=== PATIENT | male | born 1965 | race Caucasian/White ===

== ENCOUNTER 2021-09-17 15:05 | Inpatient (IN) | payer MEDICAID ==
[~2021-09-17] VITALS: Ht 165.1 cm; Wt 39.0 kg
[2021-09-17 15:44] LABS: HEMATOCRIT 30.2 % (36.7-47.1); MEAN CORPUSCULAR HEMOGLOBIN 34.1 uug (23.8-33.4); MEAN CORPUSCULAR VOLUME 99.9 fL (73.0-96.2); PLATELET COUNT (AUTO) 223 K/uL (152-348)
[2021-09-17 16:10] LABS: CREATININE 0.8 mg/dL (0.6-1.3)
[2021-09-17 16:23] LABS: BILIRUBIN,TOTAL 0.4 mg/dL (0.2-1.0); TOTAL PROTEIN, SERUM 5.7 g/dL (6.4-8.2)
[2021-09-17 17:21] LABS: *BILIRUBIN,URIN NEGATIVE (NEGATIVE); *BLOOD, URINE 2+ (NEGATIVE); *CLARITY,URINE CLEAR (CLEAR); *COLOR,URINE YELLOW (YELLOW); *KETONES,URINE NEGATIVE (NEGATIVE); *UROBILINOGEN,URINE 0.2 E.U./dl (NORMAL); LEUKOCYTE ESTERASE ,URINE TRACE (NEGATIVE); NITRITE, URINE NEGATIVE (NEGATIVE); UGLUCOSE NEGATIVE (NEGATIVE)
[2021-09-17] MEDS ORDERED: ASPI81TA31 PO (17:21)
[2021-09-17] MEDS ORDERED: LOPE2CAP PO (17:21)
[2021-09-17] MEDS ORDERED: ASCO500P18 PO (17:21)
[2021-09-17] MEDS ORDERED: FOLI1TAB94 PO (17:21)
[2021-09-17] MEDS ORDERED: SULF1TAB47 PO (17:21)
[2021-09-17] MEDS ORDERED: MULT-1276 PO (17:21)
[2021-09-17] MEDS ORDERED: PANT40TA49 PO (17:21)
[2021-09-17] MEDS ORDERED: MAGN400T8 PO (17:21)
[2021-09-17] MEDS ORDERED: THIA100T70 PO (17:21)
--- NOTE | 2021-09-17 18:40 | NUR ---
called package center supervisor for piccline.
--- NOTE | 2021-09-17 18:43 | NUR ---
PT REMAINED JINA/COMFORTABLE, ON RA THE WHOLE ER STAY. PT REQUESTED DINNER. PROVIDED.PT TRANSFERED TO FLOOR IN STABLE CONDITION.
[2021-09-17 18:54] LABS: BACTERIA,URINE FEW /HPF (NONE SEEN); SQUAMOUS EPITHELIAL CELL,UR FEW /HPF (NONE SEEN); WBC,URINE 0-3 /HPF (0-3)
[2021-09-17 20:00] VITALS: BP 91/63
[2021-09-17] MEDS ORDERED: ONDANSETRON 4 MG/2 ML VIAL IV PRN (22:45)
[2021-09-17] MEDS ORDERED: REMEDY ESSENTIAL ZINC PASTE 113 GM TP PRN (22:45)
[2021-09-17] MEDS ORDERED: CEFTRIAXONE 1 G in IV DEXTROSE 5% 50 ML IV SCH (22:45)
[2021-09-17] MEDS ORDERED: ZOLPIDEM 5 MG TABLET PO PRN (22:45)
[2021-09-17] MEDS: IV NS 1000 ML 1,000 ML IV PRN (23:06)
[2021-09-17] MEDS ORDERED: CEFTRIAXONE /D5W 50ML IVPB **ER PYXIS IV ONE (23:17)
--- NOTE | 2021-09-18 05:28 | NUR ---
Admitted to med surg. Pt somewhat confused at times but able to make needs known. IV site intact. Denies pain or SOB. Satting adequately on room air. Able to walk with FWW and with standby assist. Safety maintained, will endorse to day shift.
[2021-09-18] MEDS: PANTOPRAZOLE SODIUM 40 MG TABLET.DR PO SCH (06:07)
[2021-09-18 06:26] LABS: HEMATOCRIT 32.7 % (36.7-47.1); MEAN CORPUSCULAR HEMOGLOBIN 34.5 uug (23.8-33.4); MEAN CORPUSCULAR VOLUME 100.5 fL (73.0-96.2); PLATELET COUNT (AUTO) 130 K/uL (152-348)
[2021-09-18 06:54] LABS: CARBON DIOXIDE 25 mmol/L (21-32); CHLORIDE 98 mmol/L (98-107); CHOLESTEROL 69 mg/dL (<200); HDL CHOLESTEROL 46 mg/dL (40-60); MAGNESIUM 1.7 mg/dL (1.8-2.4); PHOSPHOROUS 3.7 mg/dL (2.5-4.9); TRIGLYCERIDES 19 MG/DL (30-150); UREA NITROGEN, BLOOD 25 mg/dL (7-18)
[2021-09-18] MEDS: THIAMINE HCL 100 MG TABLET PO SCH (08:15)
[2021-09-18] MEDS: ASPIRIN 81 MG TAB.CHEW PO SCH (08:15)
[2021-09-18] MEDS: MAGNESIUM OXIDE 400 MG TABLET PO SCH ×2 (08:15→16:14)
[2021-09-18] MEDS: ASCORBIC ACID 500 MG TABLET PO SCH (08:15)
[2021-09-18] MEDS: MULTIVITAMINS,THERAPEUTIC TABLET PO SCH (08:15)
[2021-09-18] MEDS: FOLIC ACID 1 MG TABLET PO SCH (08:16)
[2021-09-18 08:20] LABS: CREATININE 0.6 mg/dL (0.6-1.3)
[2021-09-18 08:30] LABS: GLUCOSE 45 mg/dL (74-106)
[2021-09-18] MEDS ORDERED: DEXTROSE 50% 50 ML DISP.SYRIN IV ONE (09:15)
--- NOTE | 2021-09-18 09:21 | NUR ---
pt blood sugar is 35 md made aware and new orders received noted and carried out.
[2021-09-18] MEDS ORDERED: MAGNESIUM OXIDE 400 MG TABLET PO ONE (10:00)
[2021-09-18] MEDS: IV NS 1000 ML 1,000 ML IV PRN ×2 (10:22→21:37)
[2021-09-18] MEDS ORDERED: AZIT250T13 PO (12:06)
[2021-09-18] MEDS: SULFAMETH/TRIMETH 800/160 MG TABLET PO SCH (12:29)
[2021-09-18] MEDS ORDERED: ASCO500T10 PO (12:56)
[2021-09-18 13:16] VITALS: BP 90/62
[2021-09-18 13:25] LABS: BILIRUBIN,DIRECT 0.1 mg/dL (0.0-0.2); BILIRUBIN,TOTAL 0.3 mg/dL (0.2-1.0); TOTAL PROTEIN, SERUM 5.4 g/dL (6.4-8.2)
--- NOTE | 2021-09-18 16:14 | NUR ---
Clinical Social Work Note: SW visited pt to conduct a consult. Pt was asleep and remained asleep. SW will revisit pt again to provide resources, assess alert and orientation, additional needs and questions. SW was unable to provide pt with a homeless waiver form and attached homeless shelters such as: [facility] homeless directory which provides information on locations for hot meals, sack lunches, food pantries, and showers. SW provided a list of mental health clinics: [facility] [address] [place] [address], ; [facility] [address] [place] [address], ; [facility] [address] [place] [address], ; a list of medical clinics: [facility] [address], [place]. [place], ; [facility] [address], [place] [address]; [facility] [address] [place] [address], ; and a list of substance abuse programs: [facility] Substance Abuse Self-helpline ; [facility] ; [facility] ; [facility] ; [facility] ; [facility] [phone]; [facility] [phone]. Patient signed the homeless waiver form and a copy was placed in the chart.
[2021-09-18 16:20] VITALS: BP 92/72
--- NOTE | 2021-09-18 20:35 | NUR ---
Received patient lying in bed. AAOX4, Icelandic speaking. Appears to be poorly nourished. IV access' patent and intact. RODO midline infusing fluids well. Safety precautions initiated. Will continue to monitor.
[2021-09-18 21:58] VITALS: BP 111/74
--- NOTE | 2021-09-19 | NUR ---
Received call from Augusta Liriano from [facility], requesting for an update on patient's status and if he's ready for discharge tomorrow.
[2021-09-19 00:55] VITALS: BP 87/55
[2021-09-19 04:00] VITALS: BP 91/69
[2021-09-19] MEDS: LOPERAMIDE HCL 2 MG CAPSULE PO PRN ×3 (06:00→19:47)
[2021-09-19] MEDS: PANTOPRAZOLE SODIUM 40 MG TABLET.DR PO SCH (06:00)
--- NOTE | 2021-09-19 06:42 | NUR ---
Patient slept through the night, with frequent episodes of diarrhea. Advised pt to collect stool. MRSA swab done and sent to lab. IVF infusing well. IV access' patent and intact. Patient is scheduled to have a US Abdomen Complete done, however, patient became hungry and ate snacks. Reinforced importance of imaging done. Safety precautions maintained. Will endorse to day shift.
[2021-09-19 07:27] LABS: HEMATOCRIT 28.5 % (36.7-47.1); MEAN CORPUSCULAR VOLUME 101.9 fL (73.0-96.2); PLATELET COUNT (AUTO) 161 K/uL (152-348)
[2021-09-19 08:06] LABS: HEPATITIS B SURFACE AG Negative (Negative)
[2021-09-19 08:10] LABS: CREATININE 0.7 mg/dL (0.6-1.3); MAGNESIUM 1.6 mg/dL (1.8-2.4); PHOSPHOROUS 2.9 mg/dL (2.5-4.9); URIC ACID 5.2 mg/dL (3.5-7.2)
[2021-09-19 08:25] LABS: POTASSIUM 2.6 mmol/L (3.5-5.1)
[2021-09-19 08:34] LABS: THYROID STIMULATING HORMONE 1.176 mIU/mL (0.358-3.740)
[2021-09-19] MEDS: MAGNESIUM OXIDE 400 MG TABLET PO SCH ×3 (09:00→16:43)
[2021-09-19] MEDS ORDERED: ASCORBIC ACID 500 MG TABLET PO SCH (09:00)
[2021-09-19] MEDS: ASPIRIN 81 MG TAB.CHEW PO SCH (09:56)
[2021-09-19] MEDS: AZITHROMYCIN 250 MG TABLET PO SCH (09:57)
[2021-09-19] MEDS: FOLIC ACID 1 MG TABLET PO SCH (09:57)
[2021-09-19] MEDS: THIAMINE HCL 100 MG TABLET PO SCH (09:57)
[2021-09-19] MEDS: SULFAMETH/TRIMETH 800/160 MG TABLET PO SCH (09:57)
[2021-09-19] MEDS: ASCORBIC ACID 500 MG TABLET PO SCH (09:58)
[2021-09-19] MEDS: MULTIVITAMINS,THERAPEUTIC TABLET PO SCH (09:58)
--- NOTE | 2021-09-19 10:23 | NUR ---
Pt has critical lab value reported by lab. Potassium 2.6, notified. MRSA swab sent in for processing. Per 09/18 nurse, stool sample sent in yesterday during day shift. No suigns of acute distress. Pt is a/o x 3 Occitan speaking. Pt had abdominal ultrasound done, pending results. Refused mag-ox due to diarrhea. Call light within reach. Will continue to monitor pt.
[2021-09-19] MEDS ORDERED: POTASSIUM CHLORIDE 20 MEQ TAB.PRT.SR PO ONE ×3 (11:45→15:00)
[2021-09-19] MEDS ORDERED: MAGNESIUM OXIDE 400 MG TABLET PO ONE (11:45)
[2021-09-19 11:51] VITALS: BP 96/51
[2021-09-19 16:00] VITALS: BP 86/61
[2021-09-19] MEDS: ENSURE ENLIVE (VAN) 240 ML LIQUID PO SCH (16:43)
[2021-09-19] MEDS: IV NS 1000 ML 1,000 ML IV PRN (19:40)
[2021-09-19 20:55] VITALS: BP 114/74
[2021-09-20 04:00] VITALS: BP 113/71
[2021-09-20] MEDS: IV NS 1000 ML 1,000 ML IV PRN (05:29)
[2021-09-20] MEDS: PANTOPRAZOLE SODIUM 40 MG TABLET.DR PO SCH (06:36)
[2021-09-20 07:05] LABS: HEMATOCRIT 28.1 % (36.7-47.1); MEAN CORPUSCULAR HEMOGLOBIN 34.6 uug (23.8-33.4); MEAN CORPUSCULAR VOLUME 101.8 fL (73.0-96.2); PLATELET COUNT (AUTO) 151 K/uL (152-348)
[2021-09-20 07:15] LABS: CREATININE 0.8 mg/dL (0.6-1.3); MAGNESIUM 1.6 mg/dL (1.8-2.4); POTASSIUM 3.4 mmol/L (3.5-5.1)
[2021-09-20] MEDS: FOLIC ACID 1 MG TABLET PO SCH (08:44)
[2021-09-20] MEDS: THIAMINE HCL 100 MG TABLET PO SCH (08:44)
[2021-09-20] MEDS: MAGNESIUM OXIDE 400 MG TABLET PO SCH ×2 (08:45→17:11)
[2021-09-20] MEDS: SULFAMETH/TRIMETH 800/160 MG TABLET PO SCH (08:45)
[2021-09-20] MEDS ORDERED: DEXTROSE 50% 50 ML DISP.SYRIN IV PRN (08:45)
[2021-09-20] MEDS: ENSURE ENLIVE (VAN) 240 ML LIQUID PO SCH ×3 (08:45→17:11)
[2021-09-20] MEDS: MULTIVITAMINS,THERAPEUTIC TABLET PO SCH (08:45)
--- NOTE | 2021-09-20 08:51 | NUR ---
Pt has criticakl lab value reported by lab of glucose 34. Pt is alert and oriented having breakfast. Rechecked accucheck, level was now 25. has been notified. Provided orange juice, obtained orders for and administered D50. Will closely monitor pt.
--- NOTE | 2021-09-20 09:20 | NUR ---
Rechecked accucheck and blood glucose increased to 91. Pt continue to be alert and oriented. No signs of hypoglycemia noted. Pt ate full breakfast. Will continue to monitor.
[2021-09-20] MEDS: ASPIRIN 81 MG TAB.CHEW PO SCH (09:45)
[2021-09-20] MEDS: ASCORBIC ACID 500 MG TABLET PO SCH (09:45)
[2021-09-20 10:33] LABS: AMYLASE 101 U/L (25-115); LIPASE 141 U/L (73-393)
[2021-09-20] MEDS ORDERED: POTASSIUM PHOSPHATE MM 7.5 MMOL in IV NORMAL SALINE 97.5 ML IV ONE (11:00)
[2021-09-20] MEDS: MAGNESIUM SULFATE/D5W 100 ML IV SCH ×2 (11:48→13:01)
[2021-09-20] MEDS: IV D5/ 0.9% NACL 1,000 ML IV PRN ×2 (11:48→23:37)
[2021-09-20 12:00] VITALS: BP 95/59
--- NOTE | 2021-09-20 12:00 | NUR ---
Order for Q6 accucheck has been placed. Blood sugar for 1200 is 111. Pt is also now runnin D5 NS at 100cc. Comfort measures provided, call light within reach. Will continue to monitor.
[2021-09-20] MEDS: BLOOD SUGAR DIAGNOSTIC 1 EACH STRIP VI SCH ×2 (12:44→17:43)
[2021-09-20 16:00] VITALS: BP 96/61
[2021-09-20] MEDS: LOPERAMIDE HCL 2 MG CAPSULE PO PRN (17:11)
--- NOTE | 2021-09-20 18:30 | NUR ---
Accucheck value is increased to 111 for 1800 monitoring. Entered in EMAR but does not display in labs/chemistry tab. Pharmacy and lab notified by Charge nurse. Pt has been stable since administration of d50 and fluids in the am. Removed left forearm IV and right hand IV due to leakage and pt complaint of discomfort. Left upper arm midline intact, patent, and running D5NS at 100cc. Pt continues to have diarrhea x 3 today, administered immodium. Comfort measures provided. Call light within reach. Will endorse to night guard.
[2021-09-20 20:00] VITALS: BP 61/40
[2021-09-21] MEDS: BLOOD SUGAR DIAGNOSTIC 1 EACH STRIP VI SCH ×4 (00:04→17:48)
[2021-09-21 04:00] VITALS: BP 98/65
[2021-09-21] MEDS: LOPERAMIDE HCL 2 MG CAPSULE PO PRN ×3 (05:42→17:19)
[2021-09-21] MEDS: PANTOPRAZOLE SODIUM 40 MG TABLET.DR PO SCH (06:01)
[2021-09-21 07:04] LABS: HEMATOCRIT 31.1 % (36.7-47.1); MEAN CORPUSCULAR HEMOGLOBIN 34.5 uug (23.8-33.4); MEAN CORPUSCULAR VOLUME 102.4 fL (73.0-96.2); PLATELET COUNT (AUTO) 141 K/uL (152-348)
[2021-09-21 07:35] LABS: BILIRUBIN,DIRECT 0.1 mg/dL (0.0-0.2); BILIRUBIN,TOTAL 0.3 mg/dL (0.2-1.0); CREATININE 0.8 mg/dL (0.6-1.3); MAGNESIUM 1.9 mg/dL (1.8-2.4); PHOSPHOROUS 1.6 mg/dL (2.5-4.9); POTASSIUM 3.1 mmol/L (3.5-5.1); TOTAL PROTEIN, SERUM 5.6 g/dL (6.4-8.2)
--- NOTE | 2021-09-21 08:00 | NUR ---
PT ambulatory with good balance while using FWW independently. Pt Sitting up in chair. Pt denies any c/o pain. PT had minimal coughing noted. o2 sat 97% on r/a. Call light is within reach.
[2021-09-21] MEDS ORDERED: POTASSIUM CHLORIDE 20 MEQ TAB.PRT.SR PO ONE (08:15)
[2021-09-21] MEDS ORDERED: POTASSIUM PHOSPHATE MM 15 MMOL in IV NORMAL SALINE 250 ML IV ONE (09:00)
[2021-09-21] MEDS: MAGNESIUM OXIDE 400 MG TABLET PO SCH ×2 (09:51→17:19)
[2021-09-21] MEDS: FOLIC ACID 1 MG TABLET PO SCH (09:51)
[2021-09-21] MEDS: SULFAMETH/TRIMETH 800/160 MG TABLET PO SCH (09:51)
[2021-09-21] MEDS: ASPIRIN 81 MG TAB.CHEW PO SCH (09:51)
[2021-09-21] MEDS: THIAMINE HCL 100 MG TABLET PO SCH (09:51)
[2021-09-21] MEDS: ASCORBIC ACID 500 MG TABLET PO SCH (09:52)
[2021-09-21] MEDS: MULTIVITAMINS,THERAPEUTIC TABLET PO SCH (09:52)
[2021-09-21] MEDS: ENSURE WITH FIBER 237 ML LIQUID (CHOCOLATE) PO SCH ×3 (09:52→17:48)
[2021-09-21] MEDS: ENSURE ENLIVE (VAN) 240 ML LIQUID PO SCH ×3 (09:52→17:48)
[2021-09-21 12:00] VITALS: BP 110/58
[2021-09-21 16:00] VITALS: BP 88/51
[2021-09-21] MEDS: IV D5/ 0.9% NACL 1,000 ML IV PRN (18:44)
--- NOTE | 2021-09-21 18:55 | NUR ---
Pt has poor appetite throughout shift. PT had x 3 diarrhea today gave Imodium. Pt denies any c/o pain.
[2021-09-21 20:00] VITALS: BP 88/60
[2021-09-21 21:05] LABS: *BASOS 0 % (Not Estab.); *EOS 1 % (Not Estab.); *EOS ABSOLUTE 0.1 x10E3/uL (0.0-0.4); *HCT 29.8 % (37.5-51.0); *HGB 10.7 g/dL (13.0-17.7); *IMMATURE GRANULOCYTES 0.1 x10E3/uL (0.0-0.1); *IMMATURE GRANULOCYTES 2 % (Not Estab.); *LYMPHOCYTES 17 % (Not Estab.); *LYMPHOCYTES ABSOLUTE 0.8 x10E3/uL (0.7-3.1); *MCH 34.1 pg (26.6-33.0); *MCHC 35.9 g/dL (31.5-35.7); *MCV 95 fL (79-97); *MONOCYTES 8 % (Not Estab.); *MONOCYTES ABSOLUTE 0.4 x10E3/uL (0.1-0.9); *NEUTROPHILS 72 % (Not Estab.); *NEUTROPHILS ABSOLUTE 3.4 x10E3/uL (1.4-7.0); *PLT 157 x10E3/uL (150-450); *RBC 3.14 x10E6/uL (4.14-5.80); *RDW 11.8 % (11.6-15.4); *WBC 4.7 x10E3/uL (3.4-10.8)
[2021-09-22] MEDS: BLOOD SUGAR DIAGNOSTIC 1 EACH STRIP VI SCH ×5 (00:29→23:49)
[2021-09-22 04:00] VITALS: BP 86/45
[2021-09-22] MEDS: IV D5/ 0.9% NACL 1,000 ML IV PRN ×2 (05:27→22:05)
[2021-09-22] MEDS: PANTOPRAZOLE SODIUM 40 MG TABLET.DR PO SCH (06:02)
--- NOTE | 2021-09-22 08:07 | NUR ---
Patient slept through out the night. On room air saturating at 99%. No signs of acute distress noted. Able to walk to bathroom. IV in LAC running D5 NS at 100mls. Droplet precautions initiated. 0600 Accucheck 80. Compliant with medication and care. Urinal and belongings placed within reach. Call lights with reach. Safety measures maintained.
[2021-09-22] MEDS: SULFAMETH/TRIMETH 800/160 MG TABLET PO SCH (09:53)
[2021-09-22] MEDS: THIAMINE HCL 100 MG TABLET PO SCH (09:53)
[2021-09-22] MEDS: AZITHROMYCIN 250 MG TABLET PO SCH (09:53)
[2021-09-22] MEDS: ASPIRIN 81 MG TAB.CHEW PO SCH (09:53)
[2021-09-22] MEDS: MAGNESIUM OXIDE 400 MG TABLET PO SCH ×2 (09:53→17:17)
[2021-09-22] MEDS: FOLIC ACID 1 MG TABLET PO SCH (09:53)
[2021-09-22] MEDS: MULTIVITAMINS,THERAPEUTIC TABLET PO SCH (09:53)
[2021-09-22] MEDS: ASCORBIC ACID 500 MG TABLET PO SCH (09:53)
[2021-09-22] MEDS: ENSURE ENLIVE (VAN) 240 ML LIQUID PO SCH ×3 (09:54→17:17)
[2021-09-22] MEDS: ENSURE WITH FIBER 237 ML LIQUID (CHOCOLATE) PO SCH ×3 (09:54→17:17)
[2021-09-22 10:06] LABS: *HELPER T-LYMPH MARKR(CD4)ABSO 34 /uL (359-1519); *HELPER T-LYNPH MARKER CD4)% 4.3 % (30.8-58.5)
[2021-09-22 12:00] VITALS: BP 96/56
--- NOTE | 2021-09-22 14:45 | NUR ---
Clinical Social Work Note: SW visited pt to conduct a consult. Pt was alert and oriented x4. Pt stated he does not have family and he will return to the hotel he came from. Pt stated he will go there with public transportation. SW provided pt with a homeless waiver form and attached homeless shelters such as: [facility] homeless directory which provides information on locations for hot meals, sack lunches, food pantries, and showers. SW provided a list of mental health clinics: [facility] [address] [place] [address], ; [facility] [address] [place] [address], ; [facility] [address] [place] [address], ; a list of medical clinics: [facility] [address], [place]. [place], ; [facility] [address] [facility] [place] [address]; [facility] [address] [place] [address], ; and a list of substance abuse programs: [facility] Substance Abuse Self-helpline ; [facility] ; [facility] ; [facility] ; [facility] ; [facility] [phone]; [facility] [phone]. Patient signed the homeless waiver form and a copy was placed in the chart.
[2021-09-22 16:00] VITALS: BP 87/56
--- NOTE | 2021-09-22 19:00 | NUR ---
No diarrhea noted this shift. CT abd/pelvis done awaiting report. PT has better appetite today witnessed pt ate 75% for lunch. IVF infusing as ordered. Pt's sbp @80 asymptomatic. Pt denies any dizziness. Call light is within reach.
[2021-09-22 20:00] VITALS: BP 92/52
--- NOTE | 2021-09-23 | NUR ---
Pt sleeping comfortably. On room air saturating at 100%. 0000 Accucheck done, BSG 79. No signs of acute distress. RODO midline, intact and patent running D5 NS at 100 mls. Urinal and call light placed within reach. Safety measures implemented. Droplet precautions.
[2021-09-23 04:00] VITALS: BP 94/64
[2021-09-23] MEDS: LOPERAMIDE HCL 2 MG CAPSULE PO PRN (05:59)
[2021-09-23] MEDS: BLOOD SUGAR DIAGNOSTIC 1 EACH STRIP VI SCH ×3 (05:59→17:51)
[2021-09-23] MEDS: PANTOPRAZOLE SODIUM 40 MG TABLET.DR PO SCH (06:04)
[2021-09-23 06:33] LABS: CARBON DIOXIDE 23 mmol/L (21-32); CHLORIDE 102 mmol/L (98-107); CREATININE 0.5 mg/dL (0.6-1.3); GLUCOSE 66 mg/dL (74-106); MAGNESIUM 1.8 mg/dL (1.8-2.4); PHOSPHOROUS 1.4 mg/dL (2.5-4.9); POTASSIUM 4.2 mmol/L (3.5-5.1); UREA NITROGEN, BLOOD 5 mg/dL (7-18)
[2021-09-23 08:01] LABS: HEMATOCRIT 25.1 % (36.7-47.1); MEAN CORPUSCULAR HEMOGLOBIN 34.6 uug (23.8-33.4); MEAN CORPUSCULAR VOLUME 101.3 fL (73.0-96.2); PLATELET COUNT (AUTO) 109 K/uL (152-348)
--- NOTE | 2021-09-23 08:15 | NUR ---
Slept comfortably throughout the night. On room air saturating at 100%. AO x 4. Pt had 2 diarrhea episodes am, immodium PO given. 0600 Accucheck done, BSG 69. Cheshire juice given. No signs of acute distress. Call lights within reach. Will endorse to am shift for continuity of care.
[2021-09-23] MEDS: SULFAMETH/TRIMETH 800/160 MG TABLET PO SCH (09:38)
[2021-09-23] MEDS: IV D5/ 0.9% NACL 1,000 ML IV PRN ×2 (09:38→17:41)
[2021-09-23] MEDS: ASPIRIN 81 MG TAB.CHEW PO SCH (09:38)
[2021-09-23] MEDS: MULTIVITAMINS,THERAPEUTIC TABLET PO SCH (09:38)
[2021-09-23] MEDS: THIAMINE HCL 100 MG TABLET PO SCH (09:38)
[2021-09-23] MEDS: MAGNESIUM OXIDE 400 MG TABLET PO SCH ×2 (09:39→16:46)
[2021-09-23] MEDS: FOLIC ACID 1 MG TABLET PO SCH (09:39)
[2021-09-23] MEDS: ASCORBIC ACID 500 MG TABLET PO SCH (09:39)
[2021-09-23] MEDS: ENSURE ENLIVE (VAN) 240 ML LIQUID PO SCH ×3 (09:49→16:47)
[2021-09-23] MEDS: ENSURE WITH FIBER 237 ML LIQUID (CHOCOLATE) PO SCH ×2 (09:49→13:57)
[2021-09-23 15:52] VITALS: BP 78/52
--- NOTE | 2021-09-23 15:59 | NUR ---
patient with bp 78/52 notified valorie maria with new order for NS 500ml bolus x1 noted and carried out.
[2021-09-23] MEDS ORDERED: IV NORMAL SALINE 500 ML BAG IV ONE (16:00)
[2021-09-23 17:00] VITALS: BP 87/57
[2021-09-23] MEDS ORDERED: SODIUM PHOSPHATE MM 15 MMOL in IV NORMAL SALINE 250 ML IV ONE (17:00)
[2021-09-23 20:00] VITALS: BP_SYST 77; BP_DIAS 49; BP_DIAS 79
--- NOTE | 2021-09-23 20:00 | NUR ---
Patient still noted with hypotension, Sodium phosphate infusing at this time. Patient is asymptomatic. Will continue to monitor.
[2021-09-24] VITALS: BP 85/46
[2021-09-24] MEDS: BLOOD SUGAR DIAGNOSTIC 1 EACH STRIP VI SCH ×4 (00:45→17:16)
--- NOTE | 2021-09-24 01:20 | NUR ---
Blood sugar is 55 at around 0045, 1/2 cup oj given, patient not able to tolerate full glass, BS is now 62. Encouraged one cup of orange juice and patient was able to tolerate it. Will reassess BS. Patient is asymptomatic.
--- NOTE | 2021-09-24 02:00 | NUR ---
Blood sugar is now 79. Patient remains asymptomatic.
[2021-09-24 03:07] LABS: C-PEPTIDE, SERUM 0.6 ng/mL (1.1-4.4); INSULIN 0.5 uIU/mL (2.6-24.9)
[2021-09-24] MEDS: PANTOPRAZOLE SODIUM 40 MG TABLET.DR PO SCH (06:00)
--- NOTE | 2021-09-24 06:40 | NUR ---
MD Irwin, made aware of B/P 74/47 and BS trending in the 70's. ORDER FOR 1 time bolus of 500ml NS noted and carried out.
[2021-09-24] MEDS ORDERED: IV NORMAL SALINE 500 ML IV ONE (06:45)
--- NOTE | 2021-09-24 07:52 | NUR ---
PATIENT IS STILL NOTED WITH LOW BP READING 80/[address] BACON, MENTAL HEALTH ADVANCED PRACTICE NURSE MADE AWARE. WILL CONTINUE TO MONITOR.
[2021-09-24 08:00] VITALS: BP 80/53
--- NOTE | 2021-09-24 08:00 | NUR ---
PATIENT DENIES DISCOMFORT. HE IS ALERT/ORIENTED. ABLE TO MAKE NEEDS KNOWN. WILL CONTINUE TO MONITOR.
[2021-09-24] MEDS: ASPIRIN 81 MG TAB.CHEW PO SCH (08:42)
[2021-09-24] MEDS: MULTIVITAMINS,THERAPEUTIC TABLET PO SCH (08:42)
[2021-09-24] MEDS: THIAMINE HCL 100 MG TABLET PO SCH (08:44)
[2021-09-24] MEDS: SULFAMETH/TRIMETH 800/160 MG TABLET PO SCH (08:44)
[2021-09-24] MEDS: FOLIC ACID 1 MG TABLET PO SCH (08:44)
[2021-09-24] MEDS: ASCORBIC ACID 500 MG TABLET PO SCH (08:44)
[2021-09-24] MEDS: MAGNESIUM OXIDE 400 MG TABLET PO SCH ×2 (08:44→16:26)
[2021-09-24] MEDS: ENSURE ENLIVE (VAN) 240 ML LIQUID PO SCH ×3 (08:45→16:26)
[2021-09-24] MEDS: IV D5/ 0.9% NACL 1,000 ML IV PRN ×2 (09:10→18:15)
--- NOTE | 2021-09-24 09:41 | NUR ---
DR BACON, FALL INTERN ORDERED TRANSFER PATIENT TO TELE FROM [place]. WILL CONTINUE TO MONITOR.
[2021-09-24 12:00] VITALS: BP 83/55
[2021-09-24 12:11] LABS: CORTISOL AM 15.6 ug/dL (6.2-19.4)
[2021-09-24 15:07] LABS: HEMATOCRIT 25.2 % (36.7-47.1); MEAN CORPUSCULAR HEMOGLOBIN 34.1 uug (23.8-33.4); MEAN CORPUSCULAR VOLUME 101.5 fL (73.0-96.2); PLATELET COUNT (AUTO) 95 K/uL (152-348)
[2021-09-24 15:12] LABS: CARBON DIOXIDE 24 mmol/L (21-32); CHLORIDE 104 mmol/L (98-107); CREATININE 0.4 mg/dL (0.6-1.3); GLUCOSE 70 mg/dL (74-106); PHOSPHOROUS 1.6 mg/dL (2.5-4.9); POTASSIUM 3.4 mmol/L (3.5-5.1); UREA NITROGEN, BLOOD 4 mg/dL (7-18)
[2021-09-24 16:00] VITALS: BP 84/60
[2021-09-24 18:23] VITALS: BP 94/57
--- NOTE | 2021-09-24 18:29 | NUR ---
The patient remained stable during the shift. No distress identified. Latest BP and the end of the shift is 94/57mmHg. Per MD, continue to monitor. kept call light within reach. seen by MD. No other concerns identified. all needs attended. Safety measures maintained. will endorse to the next shift for continuity of care.
[2021-09-24 20:00] VITALS: BP 81/47
--- NOTE | 2021-09-24 20:00 | NUR ---
Patient in bed. AAO x4, Yoruba speaking. Denies any pain, states he is still weak. On RA, no SOB, 02 sats 100%. Patient is malnourished and noted with poor appetite, refuses any snacks. Midline to left upper arm intact and patent. Remains with low b/p 81/47. All needs attended, call light within reach.
[2021-09-24] MEDS: HYDROCORTISONE SOD SUCCINATE 100 MG/2 ML VIAL IV SCH (21:01)
[2021-09-25] VITALS: BP 81/48
[2021-09-25] MEDS: BLOOD SUGAR DIAGNOSTIC 1 EACH STRIP VI SCH ×5 (01:21→23:47)
[2021-09-25] MEDS: IV D5/ 0.9% NACL 1,000 ML IV PRN ×2 (05:15→17:05)
[2021-09-25 05:24] VITALS: BP 77/46
[2021-09-25] MEDS ORDERED: IV NORMAL SALINE 500 ML IV ONE (06:30)
--- NOTE | 2021-09-25 06:38 | NUR ---
Dr. Stroud made aware SBP has been in the 80's but now is 77/46. Patient remains asymptomatic. Orders noted and carried out for one time IV BOLUS of 500ml.
[2021-09-25] MEDS: PANTOPRAZOLE SODIUM 40 MG TABLET.DR PO SCH (06:49)
[2021-09-25 06:51] LABS: MEAN CORPUSCULAR HEMOGLOBIN 34.2 uug (23.8-33.4); MEAN CORPUSCULAR VOLUME 99.8 fL (73.0-96.2); PLATELET COUNT (AUTO) 100 K/uL (152-348)
[2021-09-25 07:09] LABS: CARBON DIOXIDE 21 mmol/L (21-32); CHLORIDE 105 mmol/L (98-107); CREATININE 0.4 mg/dL (0.6-1.3); GLUCOSE 127 mg/dL (74-106); POTASSIUM 3.6 mmol/L (3.5-5.1); UREA NITROGEN, BLOOD 4 mg/dL (7-18)
[2021-09-25] MEDS: HYDROCORTISONE SOD SUCCINATE 100 MG/2 ML VIAL IV SCH ×2 (08:48→21:09)
[2021-09-25] MEDS: SULFAMETH/TRIMETH 800/160 MG TABLET PO SCH (08:49)
[2021-09-25] MEDS: ASPIRIN 81 MG TAB.CHEW PO SCH (08:49)
[2021-09-25] MEDS: AZITHROMYCIN 250 MG TABLET PO SCH (08:50)
[2021-09-25] MEDS: THIAMINE HCL 100 MG TABLET PO SCH (08:50)
[2021-09-25] MEDS: MULTIVITAMINS,THERAPEUTIC TABLET PO SCH (08:50)
[2021-09-25] MEDS: ASCORBIC ACID 500 MG TABLET PO SCH (08:50)
[2021-09-25] MEDS: MAGNESIUM OXIDE 400 MG TABLET PO SCH ×2 (08:50→16:57)
[2021-09-25] MEDS: FOLIC ACID 1 MG TABLET PO SCH (08:50)
[2021-09-25 09:00] VITALS: BP 87/57
[2021-09-25] MEDS: ENSURE ENLIVE (VAN) 240 ML LIQUID PO SCH ×3 (09:00→16:58)
--- NOTE | 2021-09-25 10:35 | NUR ---
Clinical SW Note Update: SW revisited pt for continuation of care. Pt appeared alert and oriented x4. Per pt, pt would like to return to [facility] where he resides. [facility] for 10 more days. Pt has signed the homeless waiver form on 09/18/21 and stated he wants to discharge back to the [facility] and re-stated he can go via public transportation. Pt stated he does not have any family. SW contacted [facility] ([phone]) and there was no answer. SW asked the pt if he would like assistance with alternative options for discharge location if he is unable to return to the [facility] due to SW being unable to connect with the [facility]. Pt stated that if he cannot return to the [facility], then yes. Pt stated he also has belongings at the [facility] that he would need to get. SW also discussed the homeless shelters resources that SW left with the pt on 09/18/21 with a copy in the pt's chart as well. Pt denies substance use, suicidal ideations and homicidal ideations. Pt is aware and agreeable with further discharge plans.
--- NOTE | 2021-09-25 11:38 | NUR ---
Received Patient in bed. AAO x4, Up ambulating to BR .Telugu speaking. Denies any pain, states he is still weak. On RA, no SOB, 02 sats 100%. Patient is malnourished and noted with poor appetite. Midline to left upper arm intact and patent. Remains with low b/p 87/57. Received a called from the lab with critical values for Lactic acid high =2.5 MD Perez made aware. All needs attended, call light within reach.
[2021-09-25 11:54] VITALS: BP 82/60
[2021-09-25] MEDS: CEFTRIAXONE 1 G in IV DEXTROSE 5% 50 ML IV SCH (12:12)
[2021-09-25] MEDS: INSULIN REGULAR, HUMAN 300 UNIT/3 ML VIAL SQ PRN ×2 (12:31→23:49)
--- NOTE | 2021-09-25 13:25 | NUR ---
Pt has critical lab value reported by ludy Hernandez repeat of Lactic acid lab =2.3 trending larisa bliss.
[2021-09-25 13:44] LABS: BILIRUBIN,DIRECT 0.1 mg/dL (0.0-0.2); BILIRUBIN,TOTAL 0.2 mg/dL (0.2-1.0)
[2021-09-25] MEDS: METRONIDAZOLE 500 MG TABLET PO SCH ×2 (13:48→21:09)
[2021-09-25 14:35] LABS: *BILIRUBIN,URIN NEGATIVE (NEGATIVE); *BLOOD, URINE 2+ (NEGATIVE); *CLARITY,URINE CLEAR (CLEAR); *COLOR,URINE YELLOW (YELLOW); *KETONES,URINE NEGATIVE (NEGATIVE); *UROBILINOGEN,URINE 0.2 E.U./dl (NORMAL); LEUKOCYTE ESTERASE ,URINE NEGATIVE (NEGATIVE); NITRITE, URINE NEGATIVE (NEGATIVE); PH,URINE 5.5 (5.0-8.0); UGLUCOSE NEGATIVE (NEGATIVE)
[2021-09-25 14:44] LABS: BACTERIA,URINE FEW /HPF (NONE SEEN); SQUAMOUS EPITHELIAL CELL,UR FEW /HPF (NONE SEEN); WBC,URINE 0-3 /HPF (0-3)
--- NOTE | 2021-09-25 15:19 | NUR ---
CÉSAR Clinical Discharge Note Update: Per [facility] employee, Jacqueline [phone], pt is welcome back upon discharge until 09/26/21. CÉSAR asked the pt if he would be open to alternative placements, he stated if he cannot return to that hotel, yes. Pt does not have any family. Pt is alert and oriented x4. Pt denies any substance use and mental health issues. Pt stated he is also worried about his belongings at the hotel. This pt has also signed a homeless waiver and is agreeable with further discharge plans. As of today 09/25/21, pt is not clear for discharge yet per . I will be providing the pt with a few walk in shelters today that help place patients. The pt is aware that he may not be welcome back and pt stated that if he cannot return there, he is agreeable to be discharged somewhere with our help. I will meet with the pt again on 09/26/21 and discuss the new options.
[2021-09-25 16:24] VITALS: BP 96/61
[2021-09-25 18:06] LABS: CMV, IgG >10.00 U/mL (0.00-0.59)
--- NOTE | 2021-09-25 19:50 | NUR ---
Received patient in bed, blankets over face, stating he is cold. One more blanket provided. AAO x4, Greek speaking. Denies any pain. On RA, no SOB, 02 sats 100%. Midline to left upper arm intact and patent. Infusing D5 NS at 100ml/hr. Patient is continent of bowel and bladder. All needs attended, call light within reach.
[2021-09-25 20:00] VITALS: BP 109/58
[2021-09-26] VITALS: BP 87/46
[2021-09-26 03:26] LABS: *OCCULT BLOOD STOOL POSITIVE (NEGATIVE)
[2021-09-26 04:00] VITALS: BP 90/50
[2021-09-26] MEDS: METRONIDAZOLE 500 MG TABLET PO SCH ×3 (06:23→22:03)
[2021-09-26] MEDS: PANTOPRAZOLE SODIUM 40 MG TABLET.DR PO SCH (06:23)
[2021-09-26] MEDS: IV D5/ 0.9% NACL 1,000 ML IV PRN ×2 (06:24→17:44)
[2021-09-26] MEDS: BLOOD SUGAR DIAGNOSTIC 1 EACH STRIP VI SCH ×3 (06:25→18:02)
[2021-09-26 06:41] LABS: HEMATOCRIT 22.7 % (36.7-47.1); MEAN CORPUSCULAR HEMOGLOBIN 34.9 uug (23.8-33.4); MEAN CORPUSCULAR VOLUME 99.3 fL (73.0-96.2); PLATELET COUNT (AUTO) 111 K/uL (152-348)
[2021-09-26 06:56] LABS: CARBON DIOXIDE 24 mmol/L (21-32); CHLORIDE 106 mmol/L (98-107); CREATININE 0.5 mg/dL (0.6-1.3); GLUCOSE 96 mg/dL (74-106); POTASSIUM 3.3 mmol/L (3.5-5.1); UREA NITROGEN, BLOOD 6 mg/dL (7-18)
--- NOTE | 2021-09-26 07:12 | NUR ---
No significant events this shift. All needs attended. On telemetry, sinus chad, 54 BPM.
[2021-09-26] MEDS: THIAMINE HCL 100 MG TABLET PO SCH (08:26)
[2021-09-26] MEDS: MULTIVITAMINS,THERAPEUTIC TABLET PO SCH (08:26)
[2021-09-26] MEDS: HYDROCORTISONE SOD SUCCINATE 100 MG/2 ML VIAL IV SCH ×2 (08:26→20:19)
[2021-09-26] MEDS: ASPIRIN 81 MG TAB.CHEW PO SCH (08:26)
[2021-09-26] MEDS: ASCORBIC ACID 500 MG TABLET PO SCH (08:26)
[2021-09-26] MEDS: MAGNESIUM OXIDE 400 MG TABLET PO SCH ×2 (08:26→16:56)
[2021-09-26] MEDS: ENSURE ENLIVE (VAN) 240 ML LIQUID PO SCH ×3 (08:26→17:40)
[2021-09-26] MEDS: FOLIC ACID 1 MG TABLET PO SCH (08:26)
[2021-09-26] MEDS: SULFAMETH/TRIMETH 800/160 MG TABLET PO SCH (08:26)
[2021-09-26] MEDS ORDERED: POTASSIUM CHLORIDE 20 MEQ TAB.PRT.SR PO ONE (10:00)
--- NOTE | 2021-09-26 12:00 | NUR ---
call received from [facility], nicole made aware that [facility] not going [facility] accept him back
[2021-09-26 12:02] VITALS: BP 95/55
[2021-09-26] MEDS: CEFTRIAXONE 1 G in IV DEXTROSE 5% 50 ML IV SCH (12:35)
[2021-09-26 16:23] VITALS: BP 97/51
--- NOTE | 2021-09-26 19:30 | NUR ---
Received pt awake, alert and orientedx4. Pt in no acute distress. Iv intact. pt on room air. Pt in sinus rhythm. Pt can make his needs known. Safety and comfort provided. Will continue to monitor.
[2021-09-26 20:00] VITALS: BP 98/52
[2021-09-27] VITALS: BP 100/58
[2021-09-27] MEDS: BLOOD SUGAR DIAGNOSTIC 1 EACH STRIP VI SCH ×4 (00:02→18:33)
[2021-09-27] MEDS: INSULIN REGULAR, HUMAN 300 UNIT/3 ML VIAL SQ PRN (00:03)
[2021-09-27 05:00] VITALS: BP 93/52
[2021-09-27] MEDS: METRONIDAZOLE 500 MG TABLET PO SCH ×3 (05:18→21:29)
--- NOTE | 2021-09-27 06:09 | NUR ---
Pt in no acute distress. Pt vital signs within normal limit. Pt on sinus rhythm. Pt on room air. Safety and comfort provided.Pt blood sugar 95 and pt drink orange juice after. All needs are met. Will endorse to incoming nurse for continuity of care.
[2021-09-27] MEDS: PANTOPRAZOLE SODIUM 40 MG TABLET.DR PO SCH (06:18)
[2021-09-27 06:48] LABS: MEAN CORPUSCULAR VOLUME 100.9 fL (73.0-96.2); PLATELET COUNT (AUTO) 115 K/uL (152-348)
[2021-09-27 07:00] LABS: CARBON DIOXIDE 23 mmol/L (21-32); CHLORIDE 110 mmol/L (98-107); CREATININE 0.5 mg/dL (0.6-1.3); GLUCOSE 94 mg/dL (74-106); UREA NITROGEN, BLOOD 5 mg/dL (7-18)
[2021-09-27 07:06] LABS: POTASSIUM 2.6 mmol/L (3.5-5.1)
--- NOTE | 2021-09-27 07:08 | NUR ---
LAB CALLED REGARDING CRITICAL LAB OF POTASSIUM.PT IN NO ACUTE DISTRESS. WILL ENDORSE.
--- NOTE | 2021-09-27 07:15 | NUR ---
notify Ana Urias Audio Visual Facilities Engineer regarding critical lab potassium 2.6. waiting for reply. Endorse to incoming nurse.
--- NOTE | 2021-09-27 07:30 | NUR ---
Received patient is bed alert and oriented times 4. No sign of distress noted at this time. Pt is on covid precaution and is also HIV positive. Pt looks emaciated at initial assessment. Safety precautions are in place. Will continue to monitor.
--- NOTE | 2021-09-27 08:10 | NUR ---
Lab called to report critical lab for lactic acid with a value of 2.1. Made Ana Urias aware, no new orders given.
[2021-09-27 08:54] LABS: BILIRUBIN,DIRECT 0.1 mg/dL (0.0-0.2); BILIRUBIN,TOTAL 0.1 mg/dL (0.2-1.0)
[2021-09-27] MEDS: HYDROCORTISONE SOD SUCCINATE 100 MG/2 ML VIAL IV SCH (09:18)
[2021-09-27] MEDS: ASPIRIN 81 MG TAB.CHEW PO SCH (09:18)
[2021-09-27] MEDS: THIAMINE HCL 100 MG TABLET PO SCH (09:19)
[2021-09-27] MEDS: FOLIC ACID 1 MG TABLET PO SCH (09:19)
[2021-09-27] MEDS: ASCORBIC ACID 500 MG TABLET PO SCH (09:20)
[2021-09-27] MEDS: SULFAMETH/TRIMETH 800/160 MG TABLET PO SCH (09:20)
[2021-09-27] MEDS: MULTIVITAMINS,THERAPEUTIC TABLET PO SCH (09:20)
[2021-09-27] MEDS: MAGNESIUM OXIDE 400 MG TABLET PO SCH ×2 (09:21→17:43)
[2021-09-27] MEDS: ENSURE ENLIVE (VAN) 240 ML LIQUID PO SCH ×3 (09:25→17:44)
[2021-09-27] MEDS ORDERED: POTASSIUM CHLORIDE 20 MEQ TAB.PRT.SR PO ONE ×2 (09:30→12:00)
[2021-09-27] MEDS ORDERED: POTASSIUM PHOSPHATE MM 15 MMOL in IV NORMAL SALINE 250 ML IV ONE (11:00)
[2021-09-27 11:02] VITALS: BP 100/43
[2021-09-27] MEDS: CEFTRIAXONE 1 G in IV DEXTROSE 5% 50 ML IV SCH (12:27)
[2021-09-27 14:30] VITALS: BP 105/70
[2021-09-27] MEDS: ACETAMINOPHEN 325 MG TABLET PO PRN (14:57)
[2021-09-27] MEDS: IV D5/ 0.9% NACL 1,000 ML IV PRN (18:13)
--- NOTE | 2021-09-27 18:33 | NUR ---
Pt blood sugar is 68. Gave him 2 containers of orange juice. Will endorse to night nurse to recheck blood sugar.
--- NOTE | 2021-09-27 18:57 | NUR ---
Pt refused to have lactic acid redrawn throughout shift, states that too much blood is being taken and that both his arms hurt. Safety precautions are in place. Will endorse to the nest shift.
[2021-09-27 20:00] VITALS: BP 94/45
[2021-09-28] MEDS: BLOOD SUGAR DIAGNOSTIC 1 EACH STRIP VI SCH ×4 (00:18→17:51)
--- NOTE | 2021-09-28 00:35 | NUR ---
Patient's Blood glucose is 69.Patient awake, no s/s of distress noted. OJ and snacks given.Tolerated well .Midline patent and intact on left upper arm with IVF infusing well.Will continue to monitor.
[2021-09-28 04:00] VITALS: BP 96/53
[2021-09-28] MEDS: IV D5/ 0.9% NACL 1,000 ML IV PRN ×3 (04:59→23:00)
[2021-09-28] MEDS: METRONIDAZOLE 500 MG TABLET PO SCH ×3 (05:28→21:43)
[2021-09-28] MEDS: LOPERAMIDE HCL 2 MG CAPSULE PO PRN (05:29)
[2021-09-28] MEDS: PANTOPRAZOLE SODIUM 40 MG TABLET.DR PO SCH (06:16)
--- NOTE | 2021-09-28 06:41 | NUR ---
Patient awake alertx4.No c/o pain or discomfort.C/o diarrhea. Imodium given. BS is 61. OJ and snacks given. Patient was able to consume 3 container of OJ and 2 pudding.Encourage p.o intake. Reinforced teaching about s/s of hypoglycemia.Pt Verbalized understanding.Call light with in reach. Will endorse oncoming shift.
--- NOTE | 2021-09-28 07:52 | NUR ---
Received sitting up in bed watching tv. Denies pain or sob. Iv is intact no signs of infiltration or phlebitis noted. No complaints at this time. Call light in reach and functional. Cont to monitor.
--- NOTE | 2021-09-28 09:00 | NUR ---
Rechecked blood sugar noted 96 mg/dl. Patient still eating his breakfast. No s/sx of hypoglycemia noted.
[2021-09-28] MEDS: MAGNESIUM OXIDE 400 MG TABLET PO SCH ×2 (09:09→17:41)
[2021-09-28] MEDS: ASPIRIN 81 MG TAB.CHEW PO SCH (09:09)
[2021-09-28] MEDS: MULTIVITAMINS,THERAPEUTIC TABLET PO SCH (09:09)
[2021-09-28] MEDS: SULFAMETH/TRIMETH 800/160 MG TABLET PO SCH (09:09)
[2021-09-28] MEDS: AZITHROMYCIN 250 MG TABLET PO SCH (09:09)
[2021-09-28] MEDS: ASCORBIC ACID 500 MG TABLET PO SCH (09:10)
[2021-09-28] MEDS: THIAMINE HCL 100 MG TABLET PO SCH (09:10)
[2021-09-28] MEDS: FOLIC ACID 1 MG TABLET PO SCH (09:10)
[2021-09-28] MEDS: ENSURE ENLIVE (VAN) 240 ML LIQUID PO SCH ×3 (09:10→17:42)
[2021-09-28] MEDS: CEFTRIAXONE 1 G in IV DEXTROSE 5% 50 ML IV SCH (11:51)
[2021-09-28 12:00] VITALS: BP 94/64
--- NOTE | 2021-09-28 12:04 | NUR ---
Checked blood sugar noted 69 mg/dl patient was provided 2 containers OJ and drank them both. no s/sx of hypoglycemia. no acute distress noted. will recheck bs later.
--- NOTE | 2021-09-28 13:27 | NUR ---
blood sugar rechecked noted 95 mg/dl. denies symptoms of hypoglycemia. encouraged to eat lunch.
--- NOTE | 2021-09-28 13:35 | NUR ---
valorie maria rounding and updated on medical condition order received to change diet to soft diet.
[2021-09-28 16:00] VITALS: BP 107/52
[2021-09-28 17:14] LABS: MEAN CORPUSCULAR HEMOGLOBIN 34.8 uug (23.8-33.4); MEAN CORPUSCULAR VOLUME 99.8 fL (73.0-96.2); PLATELET COUNT (AUTO) 123 K/uL (152-348)
[2021-09-28 17:22] LABS: CARBON DIOXIDE 22 mmol/L (21-32); CHLORIDE 106 mmol/L (98-107); CREATININE 0.6 mg/dL (0.6-1.3); GLUCOSE 95 mg/dL (74-106); UREA NITROGEN, BLOOD 5 mg/dL (7-18)
--- NOTE | 2021-09-28 18:11 | NUR ---
denies pain or sob. comfortable on room air. intermittent dry cough noted. poor po intake, encouraged during meals and snacks provided but only somewhat receptive. needs attended. kept comfortable.
[2021-09-28 18:12] LABS: CRYPTOCOCCUS AB, SERUM POSITIVE; CRYPTOCOCCUS AG TITER, SERUM 1:10
[2021-09-28 18:59] LABS: POTASSIUM 2.5 mmol/L (3.5-5.1)
--- NOTE | 2021-09-28 19:00 | NUR ---
Ana Urias np notified of K level 2.5 and lactic acid 2.6 waiting for orders. Endorsed accordingly. Addendum: 09/28/21 at 1933 by JOSE TOURE RN 1899 received call from lab and made aware of critical lab result. Andre urias made aware of potassium 2.5 and lactic acid 2.6 waiting for orders. endorsed to next shift
[2021-09-28] MEDS ORDERED: POTASSIUM CHLORIDE 10 MEQ, LIDOCAINE-MPF 1% 1 ML in IV DEXTROSE 5% 100 ML IV SCH (19:45)
[2021-09-28 20:27] VITALS: BP 132/61
[2021-09-28] MEDS ORDERED: POTASSIUM CHLORIDE 300 ML ONE (20:34)
--- NOTE | 2021-09-28 20:45 | NUR ---
Patient alert oriented, no sob no chest pain, no complain of pain, patient remains on droplet precaution. Patient has no cough no congestion, sat wnl, v/s stable, uses urinal for eliminations, call light within reach, cont to monitor.
[2021-09-28] MEDS: MEGESTROL ACETATE 400 MG/10 ML LIQUID UDC PO SCH (21:43)
[2021-09-28] MEDS ORDERED: POTASSIUM CHLORIDE 20 MEQ TAB.PRT.SR PO STA (21:48)
--- NOTE | 2021-09-28 22:00 | NUR ---
Notify Adonay Perez DIRECTOR OF HEMOPHILIA patient do not have central line, and patient can swallow, DIRECTOR OF HEMOPHILIA change Kcl via po order noted and carried out.
[2021-09-28] MEDS ORDERED: POTASSIUM CHLORIDE 20 MEQ TAB.PRT.SR PO ONE (23:55)
[2021-09-29] MEDS: BLOOD SUGAR DIAGNOSTIC 1 EACH STRIP VI SCH ×4 (00:53→17:38)
[2021-09-29 04:30] VITALS: BP 108/64
[2021-09-29] MEDS: METRONIDAZOLE 500 MG TABLET PO SCH ×3 (05:12→21:27)
[2021-09-29] MEDS: PANTOPRAZOLE SODIUM 40 MG TABLET.DR PO SCH (05:18)
--- NOTE | 2021-09-29 06:00 | NUR ---
Patient alert oriented, no sob no chest pain, no cough, no complain of pain, Patient remains on droplet precaution, no diarrhea noted, encourage to eat and drink, cont to monitor.
[2021-09-29 07:14] LABS: HEMATOCRIT 25.8 % (36.7-47.1); MEAN CORPUSCULAR HEMOGLOBIN 34.8 uug (23.8-33.4); MEAN CORPUSCULAR VOLUME 98.4 fL (73.0-96.2); PLATELET COUNT (AUTO) 133 K/uL (152-348)
[2021-09-29 07:21] LABS: CARBON DIOXIDE 26 mmol/L (21-32); CHLORIDE 108 mmol/L (98-107); CREATININE 0.5 mg/dL (0.6-1.3); GLUCOSE 87 mg/dL (74-106); UREA NITROGEN, BLOOD 4 mg/dL (7-18)
--- NOTE | 2021-09-29 07:45 | NUR ---
RECEIVED PATIENT IN BED AWAKE ALERT AND ORIENTED DENIES PAIN OR DISCOMFORTS AT THIS TIME REMAIN ON COVID ISOLATION AND PRECAUTION ON ROOM AIR WITH NO SHORTNESS OF BREATH AT THIS TIME CALL LIGHTS AND PERSONAL BELONGINGS ARE WITHIN EASY REACH MADE COMFORTABLE WILL CONTINUE TO OBSERVE.
[2021-09-29] MEDS: MAGNESIUM OXIDE 400 MG TABLET PO SCH ×2 (08:15→17:36)
[2021-09-29] MEDS: CALCIUM CARBONATE 600 MG TABLET PO SCH ×3 (08:15→17:36)
[2021-09-29] MEDS: ASPIRIN 81 MG TAB.CHEW PO SCH (08:15)
[2021-09-29] MEDS: MULTIVITAMINS,THERAPEUTIC TABLET PO SCH (08:15)
[2021-09-29] MEDS: THIAMINE HCL 100 MG TABLET PO SCH (08:16)
[2021-09-29] MEDS: FLUDROCORTISONE ACETATE 0.1 MG TABLET PO SCH (08:16)
[2021-09-29] MEDS: SULFAMETH/TRIMETH 800/160 MG TABLET PO SCH (08:16)
[2021-09-29] MEDS: ASCORBIC ACID 500 MG TABLET PO SCH (08:16)
[2021-09-29] MEDS: FOLIC ACID 1 MG TABLET PO SCH (08:16)
[2021-09-29] MEDS: CALCITRIOL 0.25 MCG CAPSULE PO SCH (08:17)
[2021-09-29] MEDS: MEGESTROL ACETATE 400 MG/10 ML LIQUID UDC PO SCH ×2 (08:17→21:28)
[2021-09-29] MEDS: ENSURE ENLIVE (VAN) 240 ML LIQUID PO SCH ×3 (08:18→17:37)
[2021-09-29 08:58] LABS: BILIRUBIN,DIRECT 0.1 mg/dL (0.0-0.2); BILIRUBIN,TOTAL 0.2 mg/dL (0.2-1.0)
[2021-09-29 09:06] LABS: POTASSIUM 2.5 mmol/L (3.5-5.1)
[2021-09-29] MEDS: CEFTRIAXONE 1 G in IV DEXTROSE 5% 50 ML IV SCH (11:13)
[2021-09-29] MEDS: IV D5W-0.45% NS +20 KCL 1,000 ML IV PRN (11:42)
[2021-09-29] MEDS: POTASSIUM CHLORIDE 10 MEQ, LIDOCAINE 1% 1 ML in IV DEXTROSE 5% 100 ML IV SCH ×6 (11:42→17:36)
[2021-09-29 12:00] VITALS: BP 106/66
--- NOTE | 2021-09-29 15:00 | NUR ---
PATIENT SEEN AND EXAMINED BY ID PEDIATRIC DIETICIAN BETTY WITH NEW ORDERS AND NOTED
[2021-09-29 16:00] VITALS: BP_SYST 146; BP_SYST 94; BP_DIAS 50; BP_DIAS 64
--- NOTE | 2021-09-29 17:57 | NUR ---
CONSCENT FOR LUMBAR PUNCTURE OBTAINED AND FILED.
[2021-09-30] MEDS: BLOOD SUGAR DIAGNOSTIC 1 EACH STRIP VI SCH ×4 (00:51→17:05)
[2021-09-30] MEDS: METRONIDAZOLE 500 MG TABLET PO SCH ×2 (05:06→15:03)
[2021-09-30] MEDS: PANTOPRAZOLE SODIUM 40 MG TABLET.DR PO SCH (05:31)
[2021-09-30 07:13] LABS: HEMATOCRIT 25.5 % (36.7-47.1); MEAN CORPUSCULAR HEMOGLOBIN 34.7 uug (23.8-33.4); MEAN CORPUSCULAR VOLUME 98.5 fL (73.0-96.2); PLATELET COUNT (AUTO) 134 K/uL (152-348)
--- NOTE | 2021-09-30 07:45 | NUR ---
RESTING COMFORTABLY SITTING BY THE WINDOW NO SIGNS OF DISTRESS. CONTINUE PLAN OF CARE
[2021-09-30 07:58] LABS: ALANINE AMINOTRANSFERASE 49 U/L (16-63); ALKALINE PHOSPHATASE 177 U/L (50-136); ASPARTATE AMINOTRANSFERASE 33 U/L (15-37); BILIRUBIN,TOTAL 0.3 mg/dL (0.2-1.0); CARBON DIOXIDE 26 mmol/L (21-32); CHLORIDE 106 mmol/L (98-107); CREATININE 0.5 mg/dL (0.6-1.3); GLUCOSE 76 mg/dL (74-106); MAGNESIUM 1.4 mg/dL (1.8-2.4); POTASSIUM 3.3 mmol/L (3.5-5.1); UREA NITROGEN, BLOOD 2 mg/dL (7-18)
[2021-09-30] MEDS: MULTIVITAMINS,THERAPEUTIC TABLET PO SCH (09:08)
[2021-09-30] MEDS: FLUDROCORTISONE ACETATE 0.1 MG TABLET PO SCH (09:08)
[2021-09-30] MEDS: ASCORBIC ACID 500 MG TABLET PO SCH (09:08)
[2021-09-30] MEDS: FOLIC ACID 1 MG TABLET PO SCH (09:08)
[2021-09-30] MEDS: SULFAMETH/TRIMETH 800/160 MG TABLET PO SCH (09:08)
[2021-09-30] MEDS: THIAMINE HCL 100 MG TABLET PO SCH (09:08)
[2021-09-30] MEDS: ENSURE ENLIVE (VAN) 240 ML LIQUID PO SCH ×3 (09:09→16:42)
[2021-09-30] MEDS: CALCIUM CARBONATE 600 MG TABLET PO SCH ×3 (09:09→15:03)
[2021-09-30] MEDS: MAGNESIUM OXIDE 400 MG TABLET PO SCH ×2 (09:09→16:43)
[2021-09-30] MEDS: ASPIRIN 81 MG TAB.CHEW PO SCH (09:09)
[2021-09-30] MEDS: MEGESTROL ACETATE 400 MG/10 ML LIQUID UDC PO SCH ×2 (09:12→22:05)
[2021-09-30] MEDS: CALCITRIOL 0.25 MCG CAPSULE PO SCH (09:12)
[2021-09-30] MEDS: IV D5W-0.45% NS +20 KCL 1,000 ML IV PRN (09:30)
[2021-09-30 10:12] LABS: PHOSPHOROUS 0.6 mg/dL (2.5-4.9)
--- NOTE | 2021-09-30 10:36 | NUR ---
SEEN BY DR TORO REVIEWED MEDS AND LABS WITH ORDERS AND CARRIED
[2021-09-30] MEDS ORDERED: POTASSIUM CHLORIDE 20 MEQ TAB.PRT.SR PO ONE (11:00)
[2021-09-30] MEDS ORDERED: NEUTRA PHOS PACKET PO ONE (11:30)
[2021-09-30] MEDS: MAGNESIUM SULFATE/D5W 100 ML IV SCH ×2 (11:33→12:07)
[2021-09-30 12:00] VITALS: BP 97/46
[2021-09-30 16:00] VITALS: BP 128/78
--- NOTE | 2021-09-30 16:00 | NUR ---
CÉSAR Clinical Note Update: Pt is alert and oriented x4. Pt denies any substance use and mental health issues. Pt denied suicidal ideations. Pt stated he is also worried about his belongings at the [facility] ([phone]) where pt resided prior to [facility]. This pt has also signed a homeless waiver form and a copy is placed in the chart. Pt is currently refusing discharge. SW will visit pt again upon discharge to discuss safe transportation options for the pt. CÉSAR provided patient with a copy of the [facility] homeless directory which provides information on locations for hot meals, sack lunches, food pantries, and showers. CÉSAR provided a list of mental health clinics: [facility] [address] [place] [address], ; [facility] [address] [place] [address], ; [facility] [address] [place] [address], ; a list of medical clinics: [facility] [address], [place]. [place], ; [facility] [address] [facility] [place] [address]; [facility] [address] [place] [address], ; and a list of substance abuse programs: [facility] Substance Abuse Self-helpline ; [facility] ; [facility] ; [facility] ; [facility] ; [facility] [phone]; [facility] [phone]. Patient signed the homeless waiver form and a copy was placed in the chart. CÉSAR also provided pt with two additional walk in shelters that assist with placements and discussed it with the pt and placed a copy in the chart and one copy with the pt.
[2021-09-30] MEDS ORDERED: SODIUM PHOSPHATE MM 15 MMOL in IV NORMAL SALINE 250 ML IV ONE (17:00)
--- NOTE | 2021-09-30 18:17 | NUR ---
NO ACUTE PAIN OR DISTRESS, REMAINS ON RA SATURATING 100%. DC PLANNING IN PROGRESS
[2021-09-30 20:39] VITALS: BP 105/46
--- NOTE | 2021-09-30 22:05 | NUR ---
Megace medication unscannable, enter manually.
[2021-10-01] MEDS: BLOOD SUGAR DIAGNOSTIC 1 EACH STRIP VI SCH ×4 (01:21→17:28)
[2021-10-01] MEDS: IV D5W-0.45% NS +20 KCL 1,000 ML IV PRN ×2 (01:54→13:41)
[2021-10-01 04:52] VITALS: BP 103/46
[2021-10-01] MEDS: PANTOPRAZOLE SODIUM 40 MG TABLET.DR PO SCH (06:00)
--- NOTE | 2021-10-01 06:40 | NUR ---
Patient alert oriented, no sob no chest pain, no complain of pain, no diarrhea noted, remains on droplet precaution, v/s stable, cont to monitor.
[2021-10-01 07:16] LABS: HEMATOCRIT 24.8 % (36.7-47.1); MEAN CORPUSCULAR HEMOGLOBIN 34.8 uug (23.8-33.4); PLATELET COUNT (AUTO) 157 K/uL (152-348)
[2021-10-01 07:22] LABS: CARBON DIOXIDE 26 mmol/L (21-32); CHLORIDE 102 mmol/L (98-107); CREATININE 0.5 mg/dL (0.6-1.3); GLUCOSE 85 mg/dL (74-106); MAGNESIUM 1.8 mg/dL (1.8-2.4); PHOSPHOROUS 1.3 mg/dL (2.5-4.9); POTASSIUM 4.2 mmol/L (3.5-5.1); UREA NITROGEN, BLOOD 2 mg/dL (7-18)
[2021-10-01] MEDS: MAGNESIUM OXIDE 400 MG TABLET PO SCH ×2 (09:16→17:19)
[2021-10-01] MEDS: FLUDROCORTISONE ACETATE 0.1 MG TABLET PO SCH (09:16)
[2021-10-01] MEDS: ASPIRIN 81 MG TAB.CHEW PO SCH (09:16)
[2021-10-01] MEDS: AZITHROMYCIN 250 MG TABLET PO SCH (09:16)
[2021-10-01] MEDS: MULTIVITAMINS,THERAPEUTIC TABLET PO SCH (09:16)
[2021-10-01] MEDS: ASCORBIC ACID 500 MG TABLET PO SCH (09:16)
[2021-10-01] MEDS: CALCIUM CARBONATE 600 MG TABLET PO SCH ×3 (09:16→17:19)
[2021-10-01] MEDS: FOLIC ACID 1 MG TABLET PO SCH (09:17)
[2021-10-01] MEDS: MEGESTROL ACETATE 400 MG/10 ML LIQUID UDC PO SCH ×2 (09:17→20:33)
[2021-10-01] MEDS: SULFAMETH/TRIMETH 800/160 MG TABLET PO SCH (09:17)
[2021-10-01] MEDS: THIAMINE HCL 100 MG TABLET PO SCH (09:17)
[2021-10-01] MEDS: CALCITRIOL 0.25 MCG CAPSULE PO SCH (09:18)
[2021-10-01] MEDS: ENSURE ENLIVE (VAN) 240 ML LIQUID PO SCH ×3 (09:20→17:19)
[2021-10-01] MEDS ORDERED: NEUTRA PHOS PACKET PO ONE (10:00)
[2021-10-01] MEDS: MAGNESIUM SULFATE/D5W 100 ML IV SCH ×2 (10:10→11:24)
--- NOTE | 2021-10-01 10:32 | NUR ---
Patient's PT/INR this mornin.4 & 1.67. Carroll ORTHODONTIC TECHNICIAN ASSISTANT notified. IR notified. Order for PT/INR to be drawn tomorrow am. Will endorse information to PM nurse
[2021-10-01 12:00] VITALS: BP 111/64
[2021-10-01 16:00] VITALS: BP 103/53
[2021-10-01] MEDS ORDERED: SODIUM PHOSPHATE MM 15 MMOL in IV NORMAL SALINE 250 ML IV ONE (17:00)
--- NOTE | 2021-10-01 18:43 | NUR ---
Patient received care well today. Patient scheduled to have lumbar puncture done tomorrow, depending on patient's PT and INR results in the morning. Will endorse information for nurse to notify radiologist to monitor opening pressure. Procedure performed to rule out meningitis. IV site intact and patent. Bed left in lowest position with call light within reach. Will endorse information to PM nurse.
[2021-10-01 20:00] VITALS: BP 95/55
[2021-10-02] VITALS (8 sets, daily range): BP systolic 72–111; BP diastolic 43–53
--- NOTE | 2021-10-02 01:26 | NUR ---
Received pt awake on bed with no respiratory distress noted. He is alert and oriented x4, able to make needs known. Midline on RODO remains patent and intact with ongoing D5 1/2 NS x K 20 meq running at 100 ml/hr. Denies pain and discomfort. Accucheck checked at 2000H per request, BS 79. Pt refused 12mn accucheck. All needs attended. Call light placed within reach. Will continue to monitor.
[2021-10-02] MEDS: IV D5W-0.45% NS +20 KCL 1,000 ML IV PRN (04:40)
[2021-10-02] MEDS: BLOOD SUGAR DIAGNOSTIC 1 EACH STRIP VI SCH ×5 (05:56→23:51)
[2021-10-02] MEDS: PANTOPRAZOLE SODIUM 40 MG TABLET.DR PO SCH (06:25)
[2021-10-02 06:30] LABS: CARBON DIOXIDE 25 mmol/L (21-32); CHLORIDE 103 mmol/L (98-107); CREATININE 0.4 mg/dL (0.6-1.3); GLUCOSE 87 mg/dL (74-106); POTASSIUM 3.6 mmol/L (3.5-5.1); UREA NITROGEN, BLOOD 4 mg/dL (7-18)
--- NOTE | 2021-10-02 06:40 | NUR ---
No significant changes noted. Pt slept throughout the night. Will endorse to next shift for continuity of care.
[2021-10-02] MEDS: ASPIRIN 81 MG TAB.CHEW PO SCH (09:18)
[2021-10-02] MEDS: MULTIVITAMINS,THERAPEUTIC TABLET PO SCH (09:18)
[2021-10-02] MEDS: THIAMINE HCL 100 MG TABLET PO SCH (09:19)
[2021-10-02] MEDS: FLUDROCORTISONE ACETATE 0.1 MG TABLET PO SCH (09:19)
[2021-10-02] MEDS: MAGNESIUM OXIDE 400 MG TABLET PO SCH ×2 (09:19→17:40)
[2021-10-02] MEDS: ENSURE ENLIVE (VAN) 240 ML LIQUID PO SCH ×3 (09:19→17:41)
[2021-10-02] MEDS: SULFAMETH/TRIMETH 800/160 MG TABLET PO SCH (09:19)
[2021-10-02] MEDS: CALCIUM CARBONATE 600 MG TABLET PO SCH ×3 (09:19→17:40)
[2021-10-02] MEDS: FOLIC ACID 1 MG TABLET PO SCH (09:19)
[2021-10-02] MEDS: CALCITRIOL 0.25 MCG CAPSULE PO SCH (09:20)
[2021-10-02] MEDS: MEGESTROL ACETATE 400 MG/10 ML LIQUID UDC PO SCH ×2 (09:20→20:22)
[2021-10-02] MEDS: POTASSIUM CHLORIDE 20 MEQ in IV D5/ 0.9% NACL 1,000 ML IV PRN (09:21)
[2021-10-02] MEDS: ASCORBIC ACID 500 MG TABLET PO SCH (09:30)
--- NOTE | 2021-10-02 11:07 | NUR ---
Pt is going to receive plasma transfusion, blood bank person unavailable until 5pm per lab. MD notified and ok with transfusion taking place after 5pm. PT 17.2 INR 1.65. Lumbar puncture pending transfusion and PT/INR levels to be within normal range.
[2021-10-02] MEDS ORDERED: SODIUM PHOSPHATE MM 15 MMOL in IV NORMAL SALINE 250 ML IV ONE (17:00)
--- NOTE | 2021-10-02 17:30 | NUR ---
Lab called and is placing order for FFP. Pt's blood type is O positive, Md eller with nonspecific blood type to be given as long as it is FFP. Laboratory notified and will be placing order from Blood bank. Pending arrival of unit for transfusion.
--- NOTE | 2021-10-02 22:15 | NUR ---
FFP transfusion started at 2200. Patient VS WNL. No adverse reactions noted at this time.
--- NOTE | 2021-10-02 23:10 | NUR ---
FFP transfusion completed. No adverse reactions, VS remained WNL. Tolerated procedure well.
[2021-10-03] MEDS: POTASSIUM CHLORIDE 20 MEQ in IV D5/ 0.9% NACL 1,000 ML IV PRN ×2 (03:40→18:22)
[2021-10-03] MEDS: BLOOD SUGAR DIAGNOSTIC 1 EACH STRIP VI SCH ×4 (05:26→21:01)
[2021-10-03] MEDS: PANTOPRAZOLE SODIUM 40 MG TABLET.DR PO SCH (06:31)
[2021-10-03 07:19] LABS: HEMATOCRIT 22.3 % (36.7-47.1); MEAN CORPUSCULAR HEMOGLOBIN 34.8 uug (23.8-33.4); MEAN CORPUSCULAR VOLUME 100.1 fL (73.0-96.2); PLATELET COUNT (AUTO) 146 K/uL (152-348)
[2021-10-03 07:32] LABS: CARBON DIOXIDE 25 mmol/L (21-32); CHLORIDE 109 mmol/L (98-107); CREATININE 0.5 mg/dL (0.6-1.3); GLUCOSE 84 mg/dL (74-106); PHOSPHOROUS 2.5 mg/dL (2.5-4.9); POTASSIUM 3.3 mmol/L (3.5-5.1); UREA NITROGEN, BLOOD 5 mg/dL (7-18)
--- NOTE | 2021-10-03 08:00 | NUR ---
Awake, alert, oriented x 4, withdrawn.
[2021-10-03] MEDS ORDERED: POTASSIUM CHLORIDE 20 MEQ TAB.PRT.SR PO ONE (09:30)
[2021-10-03] MEDS: FLUDROCORTISONE ACETATE 0.1 MG TABLET PO SCH (10:48)
[2021-10-03] MEDS: SULFAMETH/TRIMETH 800/160 MG TABLET PO SCH (10:48)
[2021-10-03] MEDS: ASPIRIN 81 MG TAB.CHEW PO SCH (10:48)
[2021-10-03] MEDS: CALCIUM CARBONATE 600 MG TABLET PO SCH ×3 (10:48→17:32)
[2021-10-03] MEDS: MEGESTROL ACETATE 400 MG/10 ML LIQUID UDC PO SCH ×2 (10:49→22:49)
[2021-10-03] MEDS: FOLIC ACID 1 MG TABLET PO SCH (10:49)
[2021-10-03] MEDS: MULTIVITAMINS,THERAPEUTIC TABLET PO SCH (10:49)
[2021-10-03] MEDS: MAGNESIUM OXIDE 400 MG TABLET PO SCH ×2 (10:49→17:32)
[2021-10-03] MEDS: CALCITRIOL 0.25 MCG CAPSULE PO SCH (10:49)
[2021-10-03] MEDS: ASCORBIC ACID 500 MG TABLET PO SCH (10:50)
[2021-10-03] MEDS: THIAMINE HCL 100 MG TABLET PO SCH (10:50)
[2021-10-03] MEDS: ENSURE ENLIVE (VAN) 240 ML LIQUID PO SCH ×3 (10:51→17:33)
[2021-10-03 11:45] VITALS: BP 86/61
--- NOTE | 2021-10-03 12:00 | NUR ---
Encouraged po intake. FWW and commode at bedside
[2021-10-03 16:00] VITALS: BP 103/58
[2021-10-03] MEDS ORDERED: PHYTONADIONE 10 MG/1 ML AMPUL SQ ONE (18:00)
--- NOTE | 2021-10-03 18:40 | NUR ---
Followed call to radiology regarding LP, goal for INR 1.1. Leon DNP aware with order for vitamin K, given.
[2021-10-03] MEDS ORDERED: INSULIN REGULAR, HUMAN 300 UNIT/3 ML VIAL SQ PRN (20:04)
[2021-10-03] MEDS ORDERED: DEXTROSE 50% 50 ML DISP.SYRIN IV PRN (20:05)
[2021-10-03 20:14] VITALS: BP 88/64
[2021-10-04 04:55] VITALS: BP 95/53
[2021-10-04] MEDS: PANTOPRAZOLE SODIUM 40 MG TABLET.DR PO SCH (06:19)
[2021-10-04] MEDS: BLOOD SUGAR DIAGNOSTIC 1 EACH STRIP VI SCH ×4 (06:20→20:26)
[2021-10-04] MEDS: POTASSIUM CHLORIDE 20 MEQ in IV D5/ 0.9% NACL 1,000 ML IV PRN ×2 (08:04→21:45)
[2021-10-04] MEDS: CALCIUM CARBONATE 600 MG TABLET PO SCH ×3 (08:37→17:10)
[2021-10-04] MEDS: ASPIRIN 81 MG TAB.CHEW PO SCH (08:37)
[2021-10-04] MEDS: FLUDROCORTISONE ACETATE 0.1 MG TABLET PO SCH (08:37)
[2021-10-04] MEDS: ASCORBIC ACID 500 MG TABLET PO SCH (08:37)
[2021-10-04] MEDS: MAGNESIUM OXIDE 400 MG TABLET PO SCH ×2 (08:38→17:00)
[2021-10-04] MEDS: FOLIC ACID 1 MG TABLET PO SCH (08:38)
[2021-10-04] MEDS: MULTIVITAMINS,THERAPEUTIC TABLET PO SCH (08:38)
[2021-10-04] MEDS: SULFAMETH/TRIMETH 800/160 MG TABLET PO SCH (08:38)
[2021-10-04] MEDS: AZITHROMYCIN 250 MG TABLET PO SCH (08:38)
[2021-10-04] MEDS: MEGESTROL ACETATE 400 MG/10 ML LIQUID UDC PO SCH ×2 (08:38→20:25)
[2021-10-04] MEDS: THIAMINE HCL 100 MG TABLET PO SCH (08:38)
[2021-10-04] MEDS: ACETAMINOPHEN 325 MG TABLET PO PRN (08:38)
[2021-10-04] MEDS: ENSURE ENLIVE (VAN) 240 ML LIQUID PO SCH ×3 (08:39→17:11)
[2021-10-04] MEDS: CALCITRIOL 0.25 MCG CAPSULE PO SCH (08:39)
[2021-10-04 11:54] VITALS: BP 93/63
[2021-10-04 12:00] VITALS: BP 93/63
[2021-10-04 16:33] VITALS: BP 97/65
[2021-10-04 20:40] VITALS: BP 120/62
[2021-10-05 04:39] VITALS: BP 111/65
[2021-10-05] MEDS: PANTOPRAZOLE SODIUM 40 MG TABLET.DR PO SCH (06:19)
[2021-10-05] MEDS: BLOOD SUGAR DIAGNOSTIC 1 EACH STRIP VI SCH ×4 (06:20→21:56)
[2021-10-05 06:42] LABS: HEMATOCRIT 21.5 % (36.7-47.1); MEAN CORPUSCULAR HEMOGLOBIN 35.1 uug (23.8-33.4); MEAN CORPUSCULAR VOLUME 100.8 fL (73.0-96.2); PLATELET COUNT (AUTO) 146 K/uL (152-348)
[2021-10-05 07:25] LABS: ALANINE AMINOTRANSFERASE 37 U/L (16-63); ALKALINE PHOSPHATASE 139 U/L (50-136); ASPARTATE AMINOTRANSFERASE 19 U/L (15-37); BILIRUBIN,TOTAL 0.3 mg/dL (0.2-1.0); CARBON DIOXIDE 16 mmol/L (21-32); CHLORIDE 110 mmol/L (98-107); CREATININE 0.6 mg/dL (0.6-1.3); GLUCOSE 90 mg/dL (74-106); MAGNESIUM 1.4 mg/dL (1.8-2.4); PHOSPHOROUS 1.8 mg/dL (2.5-4.9); POTASSIUM 3.1 mmol/L (3.5-5.1); TOTAL PROTEIN, SERUM 4.4 g/dL (6.4-8.2); UREA NITROGEN, BLOOD 5 mg/dL (7-18)
[2021-10-05] MEDS ORDERED: POTASSIUM CHLORIDE 20 MEQ TAB.PRT.SR PO ONE ×2 (09:00→14:00)
[2021-10-05] MEDS ORDERED: MAGNESIUM OXIDE 400 MG TABLET PO ONE (09:30)
[2021-10-05] MEDS: ASPIRIN 81 MG TAB.CHEW PO SCH (09:54)
[2021-10-05] MEDS: ASCORBIC ACID 500 MG TABLET PO SCH (09:54)
[2021-10-05] MEDS: MULTIVITAMINS,THERAPEUTIC TABLET PO SCH (09:54)
[2021-10-05] MEDS: CALCIUM CARBONATE 600 MG TABLET PO SCH ×3 (09:55→17:38)
[2021-10-05] MEDS: FLUDROCORTISONE ACETATE 0.1 MG TABLET PO SCH (09:55)
[2021-10-05] MEDS: SULFAMETH/TRIMETH 800/160 MG TABLET PO SCH (09:55)
[2021-10-05] MEDS: THIAMINE HCL 100 MG TABLET PO SCH (09:55)
[2021-10-05] MEDS: FOLIC ACID 1 MG TABLET PO SCH (09:55)
[2021-10-05] MEDS: MEGESTROL ACETATE 400 MG/10 ML LIQUID UDC PO SCH ×2 (09:56→21:45)
[2021-10-05] MEDS: CALCITRIOL 0.25 MCG CAPSULE PO SCH (09:56)
[2021-10-05] MEDS: ENSURE ENLIVE (VAN) 240 ML LIQUID PO SCH ×3 (09:57→17:38)
[2021-10-05] MEDS: MAGNESIUM OXIDE 400 MG TABLET PO SCH ×2 (09:58→17:38)
[2021-10-05 11:14] VITALS: BP 99/76
[2021-10-05] MEDS ORDERED: NEUTRA PHOS PACKET PO ONE (11:30)
[2021-10-05] MEDS: POTASSIUM CHLORIDE 20 MEQ in IV D5/ 0.9% NACL 1,000 ML IV PRN (12:56)
[2021-10-05 16:16] VITALS: BP 97/73
[2021-10-05] MEDS ORDERED: SODIUM PHOSPHATE MM 15 MMOL in IV NORMAL SALINE 250 ML IV ONE (18:00)
[2021-10-05 18:20] LABS: *CHLORIDE RNDM,URINE 242 mmol/L (100-250); *POTASSIUM RNDM,URINE 37 mmol/L (25-125)
[2021-10-05 20:39] VITALS: BP 108/61
--- NOTE | 2021-10-05 21:50 | NUR ---
BSG 61, orange juice given. asymptomatic, no signs of acute distress.
[2021-10-06 04:39] VITALS: BP 104/55
[2021-10-06] MEDS: PANTOPRAZOLE SODIUM 40 MG TABLET.DR PO SCH (06:20)
[2021-10-06] MEDS: POTASSIUM CHLORIDE 20 MEQ in IV D5/ 0.9% NACL 1,000 ML IV PRN ×2 (06:20→18:56)
[2021-10-06] MEDS: BLOOD SUGAR DIAGNOSTIC 1 EACH STRIP VI SCH ×4 (06:33→20:28)
[2021-10-06 06:45] LABS: HEMATOCRIT 21.5 % (36.7-47.1); MEAN CORPUSCULAR HEMOGLOBIN 34.7 uug (23.8-33.4); MEAN CORPUSCULAR VOLUME 99.5 fL (73.0-96.2); PLATELET COUNT (AUTO) 152 K/uL (152-348)
--- NOTE | 2021-10-06 07:02 | NUR ---
Pt slept throughout the night. On room air saturating at 100%. RODO midline intact, running D5 NS + KCL 20 MEQ at 75 mls. Droplet precautions. Educate pt on importance of diet. Pt had 3 diarrhea episodes, refused Immodium. Pt states " I have diarrhea all the time." BSG 69, orange juice given. No signs of acute distress. Call lights within reach. Safety measures maintained.
[2021-10-06 07:09] LABS: ALANINE AMINOTRANSFERASE 37 U/L (16-63); ALKALINE PHOSPHATASE 136 U/L (50-136); ASPARTATE AMINOTRANSFERASE 13 U/L (15-37); BILIRUBIN,TOTAL 0.4 mg/dL (0.2-1.0); CARBON DIOXIDE 17 mmol/L (21-32); CHLORIDE 108 mmol/L (98-107); CREATININE 0.5 mg/dL (0.6-1.3); GLUCOSE 79 mg/dL (74-106); PHOSPHOROUS 2.2 mg/dL (2.5-4.9); POTASSIUM 3.8 mmol/L (3.5-5.1); TOTAL PROTEIN, SERUM 4.4 g/dL (6.4-8.2); UREA NITROGEN, BLOOD 5 mg/dL (7-18)
--- NOTE | 2021-10-06 07:20 | NUR ---
received pt. AAOx4. vitals stable sitting at window site. IV running. No c/of pain.
[2021-10-06 08:00] VITALS: BP 110/78
[2021-10-06 08:16] LABS: MAGNESIUM 1.2 mg/dL (1.8-2.4)
[2021-10-06] MEDS: FOLIC ACID 1 MG TABLET PO SCH (09:05)
[2021-10-06] MEDS: ASPIRIN 81 MG TAB.CHEW PO SCH (09:05)
[2021-10-06] MEDS: THIAMINE HCL 100 MG TABLET PO SCH (09:05)
[2021-10-06] MEDS: FLUDROCORTISONE ACETATE 0.1 MG TABLET PO SCH (09:05)
[2021-10-06] MEDS: ASCORBIC ACID 500 MG TABLET PO SCH (09:06)
[2021-10-06] MEDS: MAGNESIUM OXIDE 400 MG TABLET PO SCH ×2 (09:06→17:53)
[2021-10-06] MEDS: CALCIUM CARBONATE 600 MG TABLET PO SCH ×3 (09:06→17:53)
[2021-10-06] MEDS: CALCITRIOL 0.25 MCG CAPSULE PO SCH (09:06)
[2021-10-06] MEDS: MULTIVITAMINS,THERAPEUTIC TABLET PO SCH (09:06)
[2021-10-06] MEDS: ENSURE ENLIVE (VAN) 240 ML LIQUID PO SCH ×3 (09:07→17:54)
[2021-10-06] MEDS: MEGESTROL ACETATE 400 MG/10 ML LIQUID UDC PO SCH ×2 (09:11→20:09)
[2021-10-06] MEDS: SULFAMETH/TRIMETH 800/160 MG TABLET PO SCH (09:12)
[2021-10-06] MEDS: MAGNESIUM SULFATE/D5W 100 ML IV SCH ×4 (10:51→13:37)
[2021-10-06 12:16] VITALS: BP 97/73
[2021-10-06 15:56] VITALS: BP 97/67
[2021-10-06] MEDS ORDERED: SODIUM PHOSPHATE MM 15 MMOL in IV NORMAL SALINE 250 ML IV ONE (17:00)
[2021-10-06] MEDS: NYSTATIN SUSPENSION 5 ML LIQUID UDC PO SCH ×2 (17:53→20:09)
[2021-10-06] MEDS: FLUCONAZOLE 200 MG TABLET PO SCH (17:53)
--- NOTE | 2021-10-06 18:51 | NUR ---
Left pt. on sitting position having his dinner. Vitals stable during shift. No c/of pain. on RA saturation within desired limits. Awaiting for procedure. Will endorse, for continuity of care.
--- NOTE | 2021-10-06 19:30 | NUR ---
Received pt awake, alert and orientedx4.Pt in no acute distress. Pt Iv intact. Safety and comfort provided. Will continue to monitor.
[2021-10-06 20:46] VITALS: BP 112/59
[2021-10-07 05:10] VITALS: BP 106/54
--- NOTE | 2021-10-07 06:02 | NUR ---
Pt slept intermittently. Pt in no acute distress. Pt IV intact. Prescribed medication given and pt tolerated it well. Safety and comfort provided.Pt vital signs within normal limit. Will endorse to incoming nurse for continuity of care.
[2021-10-07] MEDS: PANTOPRAZOLE SODIUM 40 MG TABLET.DR PO SCH (06:20)
[2021-10-07 06:26] LABS: CARBON DIOXIDE 21 mmol/L (21-32); CHLORIDE 107 mmol/L (98-107); CREATININE 0.5 mg/dL (0.6-1.3); GLUCOSE 82 mg/dL (74-106); MAGNESIUM 1.8 mg/dL (1.8-2.4); POTASSIUM 3.9 mmol/L (3.5-5.1); UREA NITROGEN, BLOOD 5 mg/dL (7-18)
[2021-10-07] MEDS: BLOOD SUGAR DIAGNOSTIC 1 EACH STRIP VI SCH ×4 (06:36→22:31)
--- NOTE | 2021-10-07 06:37 | NUR ---
Pt blood sugar was 74. Pt given orange juice. Pt in no acute distress. Pt stable. Will endorse to incoming nurse.
--- NOTE | 2021-10-07 07:30 | NUR ---
Received patient awake in bed, alert and orientedx4. Patient with no acute distress. Pt Iv intact. Safety and comfort provided. Will continue to monitor.
[2021-10-07] MEDS: THIAMINE HCL 100 MG TABLET PO SCH (08:28)
[2021-10-07] MEDS: MULTIVITAMINS,THERAPEUTIC TABLET PO SCH (08:28)
[2021-10-07] MEDS: CALCIUM CARBONATE 600 MG TABLET PO SCH ×3 (08:28→17:28)
[2021-10-07] MEDS: FOLIC ACID 1 MG TABLET PO SCH (08:29)
[2021-10-07] MEDS: ASCORBIC ACID 500 MG TABLET PO SCH (08:30)
[2021-10-07] MEDS: AZITHROMYCIN 250 MG TABLET PO SCH (08:30)
[2021-10-07] MEDS: FLUDROCORTISONE ACETATE 0.1 MG TABLET PO SCH (08:30)
[2021-10-07] MEDS: SULFAMETH/TRIMETH 800/160 MG TABLET PO SCH (08:36)
[2021-10-07] MEDS: MAGNESIUM OXIDE 400 MG TABLET PO SCH ×2 (08:36→17:28)
[2021-10-07] MEDS: NYSTATIN SUSPENSION 5 ML LIQUID UDC PO SCH ×4 (08:37→22:19)
[2021-10-07] MEDS: CALCITRIOL 0.25 MCG CAPSULE PO SCH (08:42)
[2021-10-07] MEDS: MEGESTROL ACETATE 400 MG/10 ML LIQUID UDC PO SCH ×2 (08:42→22:19)
[2021-10-07] MEDS: ENSURE ENLIVE (VAN) 240 ML LIQUID PO SCH ×3 (08:46→17:29)
--- NOTE | 2021-10-07 09:17 | NUR ---
0850- Rechecked patient's bs noted 54 mg/dl. Alert and oriented x4, denies symptoms of hypoglycemia and verbalized understanding of risks of low blood sugar. Drank 2 orange juices no n/v noted. Currently eating breakfast and noted with good appetite. Will cont to monitor.
[2021-10-07] MEDS: ASPIRIN 81 MG TAB.CHEW PO SCH (09:40)
[2021-10-07 12:10] VITALS: BP 110/58
--- NOTE | 2021-10-07 12:40 | NUR ---
Pt p/u by radiology for ct scan of the head ct.
--- NOTE | 2021-10-07 12:53 | NUR ---
Glucose level is 92. No insulin given. No Signs and symptoms of Hypoglycemia
--- NOTE | 2021-10-07 12:55 | NUR ---
Pt is back from ct scan. Pt is not distress. Pt is having his lunch.
--- NOTE | 2021-10-07 14:00 | NUR ---
Clinical Social Work Note SW met with patient to provide him with information regarding his HIV aftercare. SW provided patient with information for [facility] and a list of their clinics. Reminded patient of the importance to follow up with his HIV care after discharge. SW provided psychoeducation regarding treatment and what is HIV. Plan: SW will continue to follow up with patient as needed.
[2021-10-07] MEDS ORDERED: LIDOCAINE HCL 1% 20 ML VIAL ONE (15:10)
--- NOTE | 2021-10-07 15:26 | NUR ---
Pt was p/u by Radiology for the lumbar procedure. Informed radiology to measure opening pressure as endorsed by MD>
--- NOTE | 2021-10-07 16:30 | NUR ---
Pt arrived from Radiology for lumbar puncture. No signs of bleeding and distress. Will continue to monitor.
[2021-10-07] MEDS ORDERED: SODIUM PHOSPHATE MM 15 MMOL in IV NORMAL SALINE 250 ML IV ONE (17:00)
[2021-10-07 17:23] LABS: CSF GLUCOSE 61 mg/dL (40-70); CSF PROTEIN 62 mg/dL (15-45)
--- NOTE | 2021-10-07 17:30 | NUR ---
Glucose level is 86. No insulin given. No signs and symptoms of Hypoglycemia. No signs of distress.
[2021-10-07] MEDS: FLUCONAZOLE 200 MG TABLET PO SCH (17:31)
[2021-10-07 18:33] VITALS: BP 108/55
[2021-10-07 20:33] VITALS: BP 124/72
[2021-10-08 04:00] VITALS: BP 153/83
[2021-10-08 04:30] VITALS: BP 96/53
[2021-10-08 06:22] LABS: HEMATOCRIT 21.5 % (36.7-47.1); MEAN CORPUSCULAR HEMOGLOBIN 34.5 uug (23.8-33.4); MEAN CORPUSCULAR VOLUME 100.4 fL (73.0-96.2); PLATELET COUNT (AUTO) 169 K/uL (152-348)
[2021-10-08 06:27] LABS: ALANINE AMINOTRANSFERASE 34 U/L (16-63); ALKALINE PHOSPHATASE 129 U/L (50-136); ASPARTATE AMINOTRANSFERASE 11 U/L (15-37); BILIRUBIN,TOTAL 0.3 mg/dL (0.2-1.0); CARBON DIOXIDE 23 mmol/L (21-32); CHLORIDE 107 mmol/L (98-107); CREATININE 0.6 mg/dL (0.6-1.3); GLUCOSE 77 mg/dL (74-106); MAGNESIUM 1.6 mg/dL (1.8-2.4); PHOSPHOROUS 2.8 mg/dL (2.5-4.9); POTASSIUM 3.4 mmol/L (3.5-5.1); TOTAL PROTEIN, SERUM 4.5 g/dL (6.4-8.2); UREA NITROGEN, BLOOD 6 mg/dL (7-18)
--- NOTE | 2021-10-08 06:30 | NUR ---
Hgb 7.4, Hematocrit 21.5, will endorse to am shift. asymptomatic, no signs of acute distress noted.
[2021-10-08] MEDS: PANTOPRAZOLE SODIUM 40 MG TABLET.DR PO SCH (06:31)
[2021-10-08] MEDS: BLOOD SUGAR DIAGNOSTIC 1 EACH STRIP VI SCH ×4 (06:39→20:58)
--- NOTE | 2021-10-08 07:10 | NUR ---
AO x 4. Patient instructed to lay flat 4-6 hours post lumbar puncture. BSG level is 70. On room air saturating at 100%. Compliant with medication and care. Droplet precautions. RODO midline intact, saline flushed and heplock. Pt denies any pain. No signs of acute distress noted. Pt able to make needs known. Needs have been met. Call lights within reach. Safety measures maintained.
--- NOTE | 2021-10-08 07:30 | NUR ---
Received patient in bed awake alert and oriented times 4. No sign of distress noted. Pt is HIV positive and positive for Hepatitis. Safety precautions implemented. Will continue to monitor.
[2021-10-08] MEDS: NYSTATIN SUSPENSION 5 ML LIQUID UDC PO SCH ×4 (08:45→20:51)
[2021-10-08] MEDS: THIAMINE HCL 100 MG TABLET PO SCH (08:46)
[2021-10-08] MEDS: CALCITRIOL 0.25 MCG CAPSULE PO SCH (08:46)
[2021-10-08] MEDS: ASPIRIN 81 MG TAB.CHEW PO SCH (08:46)
[2021-10-08] MEDS: MEGESTROL ACETATE 400 MG/10 ML LIQUID UDC PO SCH ×2 (08:46→20:52)
[2021-10-08] MEDS: SULFAMETH/TRIMETH 800/160 MG TABLET PO SCH (08:47)
[2021-10-08] MEDS: FOLIC ACID 1 MG TABLET PO SCH (08:48)
[2021-10-08] MEDS: MAGNESIUM OXIDE 400 MG TABLET PO SCH ×2 (08:48→17:00)
[2021-10-08] MEDS: CALCIUM CARBONATE 600 MG TABLET PO SCH ×3 (08:48→17:00)
[2021-10-08] MEDS: ASCORBIC ACID 500 MG TABLET PO SCH (08:48)
[2021-10-08] MEDS: ACETAMINOPHEN 325 MG TABLET PO PRN ×2 (08:48→16:35)
[2021-10-08] MEDS: FLUDROCORTISONE ACETATE 0.1 MG TABLET PO SCH (08:48)
[2021-10-08] MEDS: MULTIVITAMINS,THERAPEUTIC TABLET PO SCH (08:48)
[2021-10-08] MEDS: ENSURE ENLIVE (VAN) 240 ML LIQUID PO SCH ×2 (08:49→13:00)
[2021-10-08] MEDS ORDERED: POTASSIUM CHLORIDE 20 MEQ TAB.PRT.SR PO ONE (09:15)
[2021-10-08] MEDS: MAGNESIUM SULFATE/D5W 100 ML IV SCH ×2 (11:06→13:50)
[2021-10-08 12:00] VITALS: BP 94/58
[2021-10-08] MEDS ORDERED: IV NORMAL SALINE 500 ML IV ONE (13:00)
[2021-10-08 15:59] VITALS: BP 113/69
[2021-10-08] MEDS: FLUCONAZOLE 200 MG TABLET PO SCH (16:37)
--- NOTE | 2021-10-08 19:44 | NUR ---
All medications given as ordered. Pt is resting in bed. Safety precautions are in place. Will endorse to oncoming nurse.
[2021-10-08 20:17] VITALS: BP 111/48
--- NOTE | 2021-10-08 20:45 | NUR ---
Patient in bed watching TV. On Ra. No s/s of distress noted. Blood glucose 78 , no s/s of hypoglycemia.[place] juice given. Able to consume 2 cups of orange juice.Snacks provided.Reinforced teaching regarding low blood sugar.Patient verbalized understanding.Midline on Right hand patent and intact.Call light with in reach.
[2021-10-09 04:51] VITALS: BP 125/64
[2021-10-09] MEDS: ACETAMINOPHEN 325 MG TABLET PO PRN (06:08)
[2021-10-09 06:18] LABS: HEMATOCRIT 21.2 % (36.7-47.1)
[2021-10-09 06:20] LABS: MEAN CORPUSCULAR HEMOGLOBIN 34.8 uug (23.8-33.4); PLATELET COUNT (AUTO) 175 K/uL (152-348)
[2021-10-09 06:24] LABS: CARBON DIOXIDE 22 mmol/L (21-32); CHLORIDE 108 mmol/L (98-107); CREATININE 0.5 mg/dL (0.6-1.3); GLUCOSE 85 mg/dL (74-106); MAGNESIUM 1.8 mg/dL (1.8-2.4); PHOSPHOROUS 2.3 mg/dL (2.5-4.9); UREA NITROGEN, BLOOD 5 mg/dL (7-18)
[2021-10-09] MEDS: PANTOPRAZOLE SODIUM 40 MG TABLET.DR PO SCH (06:28)
[2021-10-09] MEDS: BLOOD SUGAR DIAGNOSTIC 1 EACH STRIP VI SCH ×2 (06:36→16:39)
--- NOTE | 2021-10-09 06:43 | NUR ---
Patient's Blood glucose 73. No s/s hypoglycemia.Consumed 1 [place] juice and pudding. Patient's H & H 7.3 and 21.2.Notified [facility] awaiting response .Will endorse to oncoming shift.
[2021-10-09] MEDS: NYSTATIN SUSPENSION 5 ML LIQUID UDC PO SCH ×4 (08:13→20:34)
[2021-10-09] MEDS: CALCIUM CARBONATE 600 MG TABLET PO SCH ×3 (08:14→16:40)
[2021-10-09] MEDS: SULFAMETH/TRIMETH 800/160 MG TABLET PO SCH (08:14)
[2021-10-09] MEDS: MULTIVITAMINS,THERAPEUTIC TABLET PO SCH (08:14)
[2021-10-09] MEDS: THIAMINE HCL 100 MG TABLET PO SCH (08:14)
[2021-10-09] MEDS: ASCORBIC ACID 500 MG TABLET PO SCH (08:14)
[2021-10-09] MEDS: ASPIRIN 81 MG TAB.CHEW PO SCH (08:14)
[2021-10-09] MEDS: MEGESTROL ACETATE 400 MG/10 ML LIQUID UDC PO SCH ×2 (08:19→20:34)
[2021-10-09] MEDS: CALCITRIOL 0.25 MCG CAPSULE PO SCH (08:19)
[2021-10-09] MEDS: FLUDROCORTISONE ACETATE 0.1 MG TABLET PO SCH (08:28)
[2021-10-09] MEDS: FOLIC ACID 1 MG TABLET PO SCH (08:28)
[2021-10-09] MEDS: MAGNESIUM OXIDE 400 MG TABLET PO SCH ×2 (08:28→16:40)
[2021-10-09] MEDS ORDERED: POTASSIUM CHLORIDE 20 MEQ TAB.PRT.SR PO ONE ×2 (09:15→12:00)
[2021-10-09] MEDS ORDERED: DEXTROSE 50% 50 ML DISP.SYRIN IV PRN (10:59)
[2021-10-09] MEDS ORDERED: INSULIN REGULAR, HUMAN 300 UNIT/3 ML VIAL SQ PRN (11:00)
[2021-10-09 12:33] VITALS: BP 96/49
[2021-10-09 16:00] VITALS: BP 95/62
[2021-10-09] MEDS: FLUCONAZOLE 200 MG TABLET PO SCH (16:41)
--- NOTE | 2021-10-09 16:47 | NUR ---
pt blood sugar is 66 md made aware and orange juice given with sugar we will recheck in 15 minutes pt is asymptomatic
[2021-10-09] MEDS ORDERED: NEUTRA PHOS PACKET PO ONE (17:00)
--- NOTE | 2021-10-09 17:00 | NUR ---
went to recheck the blood sugar pt refused to check the bs try to explain the pt ,per pt he said he eat the dinner and he have orange juice and charge nurse made aware
[2021-10-09 20:45] VITALS: BP 123/74
[2021-10-10 04:00] VITALS: BP 128/71
[2021-10-10] MEDS: PANTOPRAZOLE SODIUM 40 MG TABLET.DR PO SCH (06:13)
--- NOTE | 2021-10-10 06:29 | NUR ---
Received pt asleep on bed with no respiratory distress noted upon initial rounds. He is alert and oriented x4, able to make needs known. Denies pain and discomfort. Midline on RODO remains patent and intact. No s/sx if infiltration on IV site. Accucheck done, BS 77. All needs attended. Call light placed within reach. Will endorse to next shift for continuity of care.
[2021-10-10] MEDS: BLOOD SUGAR DIAGNOSTIC 1 EACH STRIP VI SCH ×2 (06:32→18:22)
[2021-10-10] MEDS: AZITHROMYCIN 250 MG TABLET PO SCH (09:28)
[2021-10-10] MEDS: CALCITRIOL 0.25 MCG CAPSULE PO SCH (09:29)
[2021-10-10] MEDS: SULFAMETH/TRIMETH 800/160 MG TABLET PO SCH (09:29)
[2021-10-10] MEDS: ASCORBIC ACID 500 MG TABLET PO SCH (09:29)
[2021-10-10] MEDS: FOLIC ACID 1 MG TABLET PO SCH (09:29)
[2021-10-10] MEDS: THIAMINE HCL 100 MG TABLET PO SCH (09:29)
[2021-10-10] MEDS: FLUDROCORTISONE ACETATE 0.1 MG TABLET PO SCH (09:29)
[2021-10-10] MEDS: NYSTATIN SUSPENSION 5 ML LIQUID UDC PO SCH ×4 (09:29→20:22)
[2021-10-10] MEDS: MULTIVITAMINS,THERAPEUTIC TABLET PO SCH (09:29)
[2021-10-10] MEDS: MEGESTROL ACETATE 400 MG/10 ML LIQUID UDC PO SCH ×2 (09:30→21:18)
[2021-10-10] MEDS: ASPIRIN 81 MG TAB.CHEW PO SCH (09:30)
[2021-10-10] MEDS: CALCIUM CARBONATE 600 MG TABLET PO SCH ×3 (09:30→18:08)
[2021-10-10] MEDS: MAGNESIUM OXIDE 400 MG TABLET PO SCH ×2 (09:31→18:08)
[2021-10-10 10:36] VITALS: BP 84/58
[2021-10-10] MEDS: FLUCONAZOLE 200 MG TABLET PO SCH (18:09)
--- NOTE | 2021-10-10 19:30 | NUR ---
Received patient lying in bed asleep but easily arouse to verbal stimuli. AOx4. In no apparent distress. Denies any pain or SOB. Midline on left upper arm intact and patent. COVID precaution observed. Needs assessed and attended to. Safety measure initiated and call light within reached.
[2021-10-10 20:16] VITALS: BP 116/71
[2021-10-11 04:00] VITALS: BP 131/86
[2021-10-11] MEDS: ACETAMINOPHEN 325 MG TABLET PO PRN (05:49)
[2021-10-11] MEDS: PANTOPRAZOLE SODIUM 40 MG TABLET.DR PO SCH (06:06)
[2021-10-11 06:12] LABS: HEMATOCRIT 23.3 % (36.7-47.1); MEAN CORPUSCULAR HEMOGLOBIN 35.1 uug (23.8-33.4); MEAN CORPUSCULAR VOLUME 101.5 fL (73.0-96.2); PLATELET COUNT (AUTO) 240 K/uL (152-348)
--- NOTE | 2021-10-11 06:16 | NUR ---
Patient slept well last night. Complain of headache this morning and given Tylenol 650mg PO and effective. Denies any SOB. Midline on left upper arm intact and patent. Needs attended to and met. Safety measure maintained and call light within reached.
[2021-10-11] MEDS: BLOOD SUGAR DIAGNOSTIC 1 EACH STRIP VI SCH ×2 (06:30→16:30)
[2021-10-11 06:37] LABS: CARBON DIOXIDE 20 mmol/L (21-32); CHLORIDE 108 mmol/L (98-107); CREATININE 0.5 mg/dL (0.6-1.3); GLUCOSE 77 mg/dL (74-106); MAGNESIUM 1.4 mg/dL (1.8-2.4); PHOSPHOROUS 2.4 mg/dL (2.5-4.9); UREA NITROGEN, BLOOD 7 mg/dL (7-18)
--- NOTE | 2021-10-11 07:30 | NUR ---
Received patient in bed awake alert and oriented. No sign of distress noted at this time. Safety precautions are in place. Will continue to monitor.
[2021-10-11] MEDS: NYSTATIN SUSPENSION 5 ML LIQUID UDC PO SCH ×4 (08:36→20:53)
[2021-10-11] MEDS: MEGESTROL ACETATE 400 MG/10 ML LIQUID UDC PO SCH ×2 (08:37→20:53)
[2021-10-11] MEDS: THIAMINE HCL 100 MG TABLET PO SCH (08:37)
[2021-10-11] MEDS: CALCITRIOL 0.25 MCG CAPSULE PO SCH (08:37)
[2021-10-11] MEDS: FOLIC ACID 1 MG TABLET PO SCH (08:37)
[2021-10-11] MEDS: MULTIVITAMINS,THERAPEUTIC TABLET PO SCH (08:37)
[2021-10-11] MEDS: CALCIUM CARBONATE 600 MG TABLET PO SCH ×3 (08:37→17:48)
[2021-10-11] MEDS: ASPIRIN 81 MG TAB.CHEW PO SCH (08:37)
[2021-10-11] MEDS: SULFAMETH/TRIMETH 800/160 MG TABLET PO SCH (08:38)
[2021-10-11] MEDS: POTASSIUM CHLORIDE 50 ML IV SCH ×4 (08:38→14:37)
[2021-10-11] MEDS: MAGNESIUM OXIDE 400 MG TABLET PO SCH ×2 (08:38→17:00)
[2021-10-11] MEDS: FLUDROCORTISONE ACETATE 0.1 MG TABLET PO SCH (08:38)
[2021-10-11] MEDS: ASCORBIC ACID 500 MG TABLET PO SCH (08:38)
[2021-10-11] MEDS: MAGNESIUM SULFATE/D5W 100 ML IV SCH ×4 (11:05→16:31)
[2021-10-11 11:52] VITALS: BP 122/76
[2021-10-11] MEDS ORDERED: FLUCONAZOLE 200 MG TABLET PO ONE (14:00)
[2021-10-11] MEDS ORDERED: NEUTRA PHOS PACKET PO ONE (15:45)
[2021-10-11 16:18] VITALS: BP 121/59
--- NOTE | 2021-10-11 18:51 | NUR ---
All medications given as ordered. Pt is resting in bed. No distress noted at this all. All needs met. Safety precautions are in place. Will endorse to oncoming nurse.
--- NOTE | 2021-10-11 19:00 | NUR ---
Received patient on bed, alert, no shortness of breath noted. No complaint of pain, with IV cannula at left arm g-18 intact and patent.
[2021-10-11 20:24] VITALS: BP 143/71
[2021-10-12 04:52] VITALS: BP 121/69
[2021-10-12] MEDS ORDERED: FLUCYTOSINE 250 MG CAPSULE PO SCH (06:00)
[2021-10-12] MEDS: PANTOPRAZOLE SODIUM 40 MG TABLET.DR PO SCH (06:35)
--- NOTE | 2021-10-12 07:00 | NUR ---
Patient slept well, no complaint of pain. No shortness of breath. Blood sugar 68 mg/dl, patient awake and oriented, no dizziness noted. Offered 2 glasses of orange juice, tolerated by patient. Endorsed to morning shift for continuity of care.
[2021-10-12] MEDS: BLOOD SUGAR DIAGNOSTIC 1 EACH STRIP VI SCH ×2 (07:05→16:41)
--- NOTE | 2021-10-12 08:00 | NUR ---
Pt has good appetite for breakfast. Spoke with pt re: lab draw. PT agreeable with the lab draw. Call light is within reach.
[2021-10-12] MEDS ORDERED: FLUCONAZOLE 200 MG TABLET PO SCH (09:00)
[2021-10-12] MEDS: FOLIC ACID 1 MG TABLET PO SCH (09:25)
[2021-10-12] MEDS: ASCORBIC ACID 500 MG TABLET PO SCH (09:25)
[2021-10-12] MEDS: THIAMINE HCL 100 MG TABLET PO SCH (09:25)
[2021-10-12] MEDS: CALCIUM CARBONATE 600 MG TABLET PO SCH ×3 (09:26→16:25)
[2021-10-12] MEDS: MAGNESIUM OXIDE 400 MG TABLET PO SCH ×2 (09:26→16:24)
[2021-10-12] MEDS: NYSTATIN SUSPENSION 5 ML LIQUID UDC PO SCH ×4 (09:26→21:05)
[2021-10-12] MEDS: MULTIVITAMINS,THERAPEUTIC TABLET PO SCH (09:26)
[2021-10-12] MEDS: FLUDROCORTISONE ACETATE 0.1 MG TABLET PO SCH (09:26)
[2021-10-12] MEDS: ASPIRIN 81 MG TAB.CHEW PO SCH (09:26)
[2021-10-12] MEDS: SULFAMETH/TRIMETH 800/160 MG TABLET PO SCH (09:26)
[2021-10-12] MEDS: MEGESTROL ACETATE 400 MG/10 ML LIQUID UDC PO SCH ×2 (09:27→16:27)
[2021-10-12] MEDS: CALCITRIOL 0.25 MCG CAPSULE PO SCH (09:27)
[2021-10-12 09:32] LABS: HEMATOCRIT 23.9 % (36.7-47.1); MEAN CORPUSCULAR HEMOGLOBIN 34.8 uug (23.8-33.4); MEAN CORPUSCULAR VOLUME 100.7 fL (73.0-96.2); PLATELET COUNT (AUTO) 221 K/uL (152-348)
[2021-10-12 09:44] LABS: ALANINE AMINOTRANSFERASE 27 U/L (16-63); ALKALINE PHOSPHATASE 116 U/L (50-136); ASPARTATE AMINOTRANSFERASE 16 U/L (15-37); BILIRUBIN,TOTAL 0.3 mg/dL (0.2-1.0); CARBON DIOXIDE 23 mmol/L (21-32); CHLORIDE 105 mmol/L (98-107); CREATININE 0.4 mg/dL (0.6-1.3); GLUCOSE 85 mg/dL (74-106); MAGNESIUM 1.7 mg/dL (1.8-2.4); PHOSPHOROUS 2.2 mg/dL (2.5-4.9); TOTAL PROTEIN, SERUM 4.9 g/dL (6.4-8.2); UREA NITROGEN, BLOOD 5 mg/dL (7-18)
[2021-10-12 09:51] LABS: POTASSIUM 2.8 mmol/L (3.5-5.1)
[2021-10-12] MEDS: AMPHOTERICIN B LIPOSOME IV SCH (10:03)
[2021-10-12] MEDS: DEXTROSE 5% IV SCH (10:03)
[2021-10-12] MEDS ORDERED: POTASSIUM CHLORIDE 10 MEQ TAB.PRT.SR PO ONE (12:00)
[2021-10-12 12:02] VITALS: BP 95/65
[2021-10-12 12:09] LABS: EOSINOPHILS % (MANUAL) 1 % (0-8); LYMPHOCYTES % (MANUAL) 44 % (20-40); MONOCYTES % (MANUAL) 9 % (2-10); NEUTROPHILS % (MANUAL) 46 % (42-75)
[2021-10-12] MEDS: ENSURE CLEAR 240 ML LIQUID (MIX BERRY) PO SCH ×2 (12:16→16:20)
[2021-10-12] MEDS: FLUCYTOSINE 250 MG CAPSULE PO SCH ×3 (12:23→23:46)
[2021-10-12] MEDS: POTASSIUM CHLORIDE 50 ML IV SCH ×4 (12:28→16:42)
[2021-10-12] MEDS ORDERED: AMPHOTERICIN B IV SCH (13:15)
[2021-10-12] MEDS ORDERED: DEXTROSE 5% IV SCH (13:15)
[2021-10-12] MEDS ORDERED: IV NORMAL SALINE 500 ML IV ONE (14:15)
[2021-10-12] MEDS ORDERED: SODIUM PHOSPHATE MM 15 MMOL in IV NORMAL SALINE 250 ML IV ONE (15:30)
[2021-10-12 16:05] VITALS: BP 85/59
--- NOTE | 2021-10-12 17:35 | NUR ---
NO diarrhea noted this shift. Pt is in no acute distress. Call light is within reach.
[2021-10-12 20:24] VITALS: BP 96/61
[2021-10-13 04:27] VITALS: BP 116/65
[2021-10-13] MEDS: PANTOPRAZOLE SODIUM 40 MG TABLET.DR PO SCH (06:11)
[2021-10-13] MEDS: FLUCYTOSINE 250 MG CAPSULE PO SCH (06:11)
[2021-10-13] MEDS: BLOOD SUGAR DIAGNOSTIC 1 EACH STRIP VI SCH ×2 (06:24→16:33)
[2021-10-13 06:31] LABS: MEAN CORPUSCULAR HEMOGLOBIN 37.2 uug (23.8-33.4); MEAN CORPUSCULAR VOLUME 102.5 fL (73.0-96.2); PLATELET COUNT (AUTO) 216 K/uL (152-348)
[2021-10-13 06:39] LABS: HEMATOCRIT 20.9 % (36.7-47.1)
[2021-10-13 06:41] LABS: ALANINE AMINOTRANSFERASE 23 U/L (16-63); ALKALINE PHOSPHATASE 108 U/L (50-136); ASPARTATE AMINOTRANSFERASE 23 U/L (15-37); BILIRUBIN,TOTAL 0.2 mg/dL (0.2-1.0); CARBON DIOXIDE 22 mmol/L (21-32); CHLORIDE 112 mmol/L (98-107); CREATININE 0.5 mg/dL (0.6-1.3); GLUCOSE 80 mg/dL (74-106); MAGNESIUM 1.7 mg/dL (1.8-2.4); PHOSPHOROUS 2.7 mg/dL (2.5-4.9); POTASSIUM 3.2 mmol/L (3.5-5.1); TOTAL PROTEIN, SERUM 4.4 g/dL (6.4-8.2); UREA NITROGEN, BLOOD 4 mg/dL (7-18)
[2021-10-13 06:58] LABS: LYMPHOCYTES % (MANUAL) 38 % (20-40); MONOCYTES % (MANUAL) 13 % (2-10); NEUTROPHILS % (MANUAL) 49 % (42-75)
[2021-10-13] MEDS: AZITHROMYCIN 250 MG TABLET PO SCH (08:17)
[2021-10-13] MEDS: NYSTATIN SUSPENSION 5 ML LIQUID UDC PO SCH ×4 (08:17→20:11)
[2021-10-13] MEDS: MULTIVITAMINS,THERAPEUTIC TABLET PO SCH (08:18)
[2021-10-13] MEDS: SULFAMETH/TRIMETH 800/160 MG TABLET PO SCH (08:18)
[2021-10-13] MEDS: THIAMINE HCL 100 MG TABLET PO SCH (08:18)
[2021-10-13] MEDS: CALCIUM CARBONATE 600 MG TABLET PO SCH ×3 (08:18→16:32)
[2021-10-13] MEDS: ASCORBIC ACID 500 MG TABLET PO SCH (08:18)
[2021-10-13] MEDS: ASPIRIN 81 MG TAB.CHEW PO SCH (08:18)
[2021-10-13] MEDS: FLUDROCORTISONE ACETATE 0.1 MG TABLET PO SCH (08:18)
[2021-10-13] MEDS: FOLIC ACID 1 MG TABLET PO SCH (08:18)
[2021-10-13] MEDS: MAGNESIUM OXIDE 400 MG TABLET PO SCH ×2 (08:18→16:34)
[2021-10-13] MEDS: CALCITRIOL 0.25 MCG CAPSULE PO SCH (08:19)
[2021-10-13] MEDS: MEGESTROL ACETATE 400 MG/10 ML LIQUID UDC PO SCH ×2 (08:32→20:11)
[2021-10-13] MEDS: ENSURE CLEAR 240 ML LIQUID (MIX BERRY) PO SCH ×3 (08:36→16:33)
[2021-10-13] MEDS: DEXTROSE 5% IV SCH (10:01)
[2021-10-13] MEDS: AMPHOTERICIN B LIPOSOME IV SCH (10:01)
--- NOTE | 2021-10-13 11:25 | NUR ---
DEMARCUS ROBIN [employer]ION[employer] MANAGER HERE TO SEE PATIENT WITH ORDERS WANTS THE LP DONE STATED WANTS IT REPEATED BECAUSE THE OPENING PRESSURE WAS NOT DONE ON PREVIOUS LP AND THAT SHE ADDED MORE LABS TO BE DONE.PATIENT AWARE WILL HAVE HIM SIGN ANOTHER CONSCENT
[2021-10-13 12:01] VITALS: BP 98/55
--- NOTE | 2021-10-13 12:04 | NUR ---
CONSCENT FOR LUMBAR PUNCTURE OBTAINED ORDERED AND DOCUMENTED.
[2021-10-13] MEDS ORDERED: VANCOMYCIN IV 1,000 MG in IV DEXTROSE 5% 250 ML IV ONE (13:00)
[2021-10-13] MEDS: CEFTRIAXONE 2 G in IV DEXTROSE 5% 100 ML IV SCH ×2 (13:05→20:14)
--- NOTE | 2021-10-13 14:45 | NUR ---
PATIENT PICKED UP BY BED TO THE RADIOLOGY DEPT BY BED FOR THE LUMBAR PUNCTURE STUDIES ORDERED.
[2021-10-13] MEDS ORDERED: LIDOCAINE HCL 1% 20 ML VIAL ONE (15:54)
--- NOTE | 2021-10-13 16:14 | NUR ---
PATIENT RETURNED FROM RADIOLOGY S/P LUMBAR PUNCTURE IN SATISFACTORY CONDITION WILL CONTINUE WITH HIS PIGGY BACKS.
[2021-10-13 16:30] VITALS: BP 96/55
[2021-10-13] MEDS: MAGNESIUM SULFATE/D5W 100 ML IV SCH ×2 (17:49→18:44)
--- NOTE | 2021-10-13 17:52 | NUR ---
RESTING IN BED CONTINUED ON ATB AND MAG REPLACEMENT ORDERED WITH NO ADVERSE OR ALLERGIC REACTIONS AT THIS TIME WILL CONTINUE TO OBSERVE.
--- NOTE | 2021-10-13 19:30 | NUR ---
Received pt awake, alert and orientedx4. Pt in no acute distress. Iv intact. Pt can make his needs known .Safety and comfort provided. Will continue to monitor.
[2021-10-13 20:00] VITALS: BP 108/67
[2021-10-13] MEDS: POTASSIUM CHLORIDE 50 ML IV SCH ×3 (20:04→23:00)
[2021-10-13] MEDS ORDERED: VANCOMYCIN IV 750 MG in IV DEXTROSE 5% 250 ML IV SCH (21:00)
[2021-10-14] VITALS (8 sets, daily range): BP systolic 111–141; BP diastolic 53–83
[2021-10-14] MEDS: POTASSIUM CHLORIDE 50 ML IV SCH ×4 (00:39→18:37)
[2021-10-14] MEDS: ACETAMINOPHEN 325 MG TABLET PO PRN (05:52)
[2021-10-14] MEDS: PANTOPRAZOLE SODIUM 40 MG TABLET.DR PO SCH (06:06)
--- NOTE | 2021-10-14 06:20 | NUR ---
Pt in no acute distress. Iv intact. Prescribed medication given and pt tolerated it well. Pt given Tylenol 650 mg prn for back pain. Blood sugar was 76. Gave orange juice to pt to prevent hypoglycemia while waiting for breakfast. Safety and comfort provided. Vital signs within normal limit. Will endorse to incoming nurse for continuity of care.
[2021-10-14] MEDS: BLOOD SUGAR DIAGNOSTIC 1 EACH STRIP VI SCH ×2 (06:31→18:36)
[2021-10-14 06:42] LABS: CARBON DIOXIDE 15 mmol/L (21-32); CHLORIDE 110 mmol/L (98-107); CREATININE 0.5 mg/dL (0.6-1.3); GLUCOSE 82 mg/dL (74-106); MAGNESIUM 1.9 mg/dL (1.8-2.4); UREA NITROGEN, BLOOD 5 mg/dL (7-18)
[2021-10-14 06:51] LABS: POTASSIUM 2.5 mmol/L (3.5-5.1)
[2021-10-14 06:52] LABS: HEMATOCRIT 21.1 % (36.7-47.1); MEAN CORPUSCULAR HEMOGLOBIN 34.6 uug (23.8-33.4); PLATELET COUNT (AUTO) 222 K/uL (152-348)
--- NOTE | 2021-10-14 06:52 | NUR ---
Notify Dr. Marta Del Real that lab called and critical lab result of WBC 1.5, HGB 7.1 and K 2.5. ordered transfuse PRBC and KCL 40 meq BIDx2 days
[2021-10-14 07:16] LABS: EOSINOPHILS % (MANUAL) 1 % (0-8); LYMPHOCYTES % (MANUAL) 34 % (20-40); MONOCYTES % (MANUAL) 9 % (2-10); NEUTROPHILS % (MANUAL) 56 % (42-75)
[2021-10-14] MEDS: ASPIRIN 81 MG TAB.CHEW PO SCH (08:47)
[2021-10-14] MEDS: FLUDROCORTISONE ACETATE 0.1 MG TABLET PO SCH (08:48)
[2021-10-14] MEDS: NYSTATIN SUSPENSION 5 ML LIQUID UDC PO SCH ×4 (08:48→21:12)
[2021-10-14] MEDS: FOLIC ACID 1 MG TABLET PO SCH (08:48)
[2021-10-14] MEDS: MULTIVITAMINS,THERAPEUTIC TABLET PO SCH (08:48)
[2021-10-14] MEDS: CALCIUM CARBONATE 600 MG TABLET PO SCH ×3 (08:48→18:26)
[2021-10-14] MEDS: SULFAMETH/TRIMETH 800/160 MG TABLET PO SCH (08:49)
[2021-10-14] MEDS: ASCORBIC ACID 500 MG TABLET PO SCH (08:49)
[2021-10-14] MEDS: THIAMINE HCL 100 MG TABLET PO SCH (08:49)
[2021-10-14] MEDS: POTASSIUM CHLORIDE 20 MEQ TAB.PRT.SR PO SCH ×2 (08:49→18:26)
[2021-10-14] MEDS: MAGNESIUM OXIDE 400 MG TABLET PO SCH ×3 (08:50→17:00)
[2021-10-14] MEDS: ENSURE CLEAR 240 ML LIQUID (MIX BERRY) PO SCH ×3 (08:50→17:57)
[2021-10-14] MEDS: MEGESTROL ACETATE 400 MG/10 ML LIQUID UDC PO SCH ×2 (08:51→09:00)
[2021-10-14] MEDS: CALCITRIOL 0.25 MCG CAPSULE PO SCH (08:52)
[2021-10-14] MEDS: DEXTROSE 5% IV SCH (11:05)
[2021-10-14] MEDS: AMPHOTERICIN B LIPOSOME IV SCH (11:05)
--- NOTE | 2021-10-14 13:38 | NUR ---
Per MD Flores, no transfusion yet but order is in place and consent in chart. Per infectious disease MD, remove Covid isolation from pt.
[2021-10-14] MEDS: FLUCONAZOLE 200 MG TABLET PO SCH (13:41)
[2021-10-14 15:06] LABS: CRYPTOCOCCUS AB, SERUM Negative (Negative)
[2021-10-14 16:22] LABS: *RHEUMATOID FACTOR SCREEN NEGATIVE (NEGATIVE)
--- NOTE | 2021-10-14 19:00 | NUR ---
Pt has refused magnesium oxide, states that it gives him diarrhea and keeps him up at night. Pt also refused megace because he states his appetite is in place and he is eating well. Pt is a/o x 4, no signs of acute distress. Blood sugar within normal range, pt eats meals fully. Potassium supplementation administered per MD order. Covid isolation has been removed per ID MD order.Lab reported blood unit ready for transfusion will endorse to night custodian.
--- NOTE | 2021-10-14 20:38 | NUR ---
Patient alert oriented, no sob o chest pain, transfusing 1 unit PRBC tolerate well no adverse reaction noted, cont to monitor.
--- NOTE | 2021-10-14 22:29 | NUR ---
Transfused 1 unit PRBC tolerate well, no adverse reaction noted, no sob no congestion noted. cont to monitor.
[2021-10-15 04:00] VITALS: BP 135/72
[2021-10-15] MEDS: BLOOD SUGAR DIAGNOSTIC 1 EACH STRIP VI SCH ×2 (06:26→16:31)
[2021-10-15] MEDS: PANTOPRAZOLE SODIUM 40 MG TABLET.DR PO SCH (06:26)
[2021-10-15 06:39] LABS: HEMATOCRIT 28.9 % (36.7-47.1); MEAN CORPUSCULAR HEMOGLOBIN 33.2 uug (23.8-33.4); MEAN CORPUSCULAR VOLUME 97.7 fL (73.0-96.2); PLATELET COUNT (AUTO) 234 K/uL (152-348)
--- NOTE | 2021-10-15 06:40 | NUR ---
Patient alert oriented, no sob no chest pain, no complain of pain. Patient reported that he had multiple episode of bowel movement, not diarrhea just bm, encourage to drink plenty of fluids, remain on droplet precaution, cont to monitor.
[2021-10-15 07:00] LABS: CREATININE 0.7 mg/dL (0.6-1.3); MAGNESIUM 1.7 mg/dL (1.8-2.4); PHOSPHOROUS 2.9 mg/dL (2.5-4.9)
[2021-10-15 07:04] LABS: POTASSIUM 2.8 mmol/L (3.5-5.1)
[2021-10-15 07:07] LABS: *IMMUNOGLOBULIN G, SERUM 1353 mg/dL (603-1613); IMMUNOGLOBULIN A, SERUM 178 mg/dL (90-386); IMMUNOGLOBULIN M, SERUM 210 mg/dL (20-172)
--- NOTE | 2021-10-15 07:15 | NUR ---
Patient lab kcl 2.8 notify Dash Flores endorsed to next shift.
[2021-10-15] MEDS ORDERED: POTASSIUM CHLORIDE 20 MEQ POWDER PACKET PO ONE (08:15)
[2021-10-15 08:27] LABS: LYMPHOCYTES % (MANUAL) 48 % (20-40); MONOCYTES % (MANUAL) 9 % (2-10); NEUTROPHILS % (MANUAL) 43 % (42-75)
[2021-10-15] MEDS: POTASSIUM CHLORIDE 50 ML IV SCH ×2 (08:51→09:56)
[2021-10-15] MEDS: ASPIRIN 81 MG TAB.CHEW PO SCH (08:54)
[2021-10-15] MEDS: THIAMINE HCL 100 MG TABLET PO SCH (08:54)
[2021-10-15] MEDS: SULFAMETH/TRIMETH 800/160 MG TABLET PO SCH (08:54)
[2021-10-15] MEDS: FLUDROCORTISONE ACETATE 0.1 MG TABLET PO SCH (08:55)
[2021-10-15] MEDS: CALCIUM CARBONATE 600 MG TABLET PO SCH ×3 (08:55→16:22)
[2021-10-15] MEDS: ASCORBIC ACID 500 MG TABLET PO SCH (08:55)
[2021-10-15] MEDS: LOPERAMIDE HCL 2 MG CAPSULE PO PRN (08:55)
[2021-10-15] MEDS: FOLIC ACID 1 MG TABLET PO SCH (08:55)
[2021-10-15] MEDS: MULTIVITAMINS,THERAPEUTIC TABLET PO SCH (08:55)
[2021-10-15] MEDS: NYSTATIN SUSPENSION 5 ML LIQUID UDC PO SCH ×4 (08:57→20:18)
[2021-10-15] MEDS: CALCITRIOL 0.25 MCG CAPSULE PO SCH (08:57)
[2021-10-15] MEDS: ENSURE CLEAR 240 ML LIQUID (MIX BERRY) PO SCH ×3 (08:59→16:23)
[2021-10-15] MEDS: FLUCONAZOLE 200 MG TABLET PO SCH (08:59)
[2021-10-15] MEDS ORDERED: MAGNESIUM OXIDE 400 MG TABLET PO ONE (09:45)
[2021-10-15 10:07] LABS: *ANTI-SCLERODERMA-70 AB <0.2 AI (0.0-0.9); *SJOGREN'S ANTI-SS-A <0.2 AI (0.0-0.9); *SJOGREN'S ANTI-SS-B <0.2 AI (0.0-0.9); *SMITH ANTIBODIES <0.2 AI (0.0-0.9); ANTI-DNA(DS) AB, QN <1 IU/mL (0-9)
[2021-10-15] MEDS ORDERED: MAGNESIUM SULFATE/D5W 100 ML IV SCH (10:45)
[2021-10-15 12:09] VITALS: BP 119/85
[2021-10-15 16:06] LABS: A/G RATIO 0.9 (0.7-1.7); ALBUMIN 2.4 g/dL (2.9-4.4); ALPHA-1-GLOBULIN 0.2 g/dL (0.0-0.4); ALPHA-2-GLOBULIN 0.5 g/dL (0.4-1.0); BETA GLOBULIN 0.5 g/dL (0.7-1.3); GAMMA GLOBULIN 1.5 g/dL (0.4-1.8); GLOBULIN, TOTAL 2.8 g/dL (2.2-3.9); M-SPIKE Not Observed g/dL (Not Observed)
[2021-10-15] MEDS: NUTRISOURCE FIBER 4 GM PACKET PO SCH (16:23)
[2021-10-15] MEDS: MEGESTROL ACETATE 400 MG/10 ML LIQUID UDC PO SCH (20:20)
[2021-10-15 20:36] VITALS: BP 120/70
[2021-10-16 05:25] VITALS: BP 113/65
[2021-10-16] MEDS: PANTOPRAZOLE SODIUM 40 MG TABLET.DR PO SCH (06:24)
[2021-10-16] MEDS: BLOOD SUGAR DIAGNOSTIC 1 EACH STRIP VI SCH ×2 (06:24→16:21)
[2021-10-16 06:42] LABS: HEMATOCRIT 25.3 % (36.7-47.1); MEAN CORPUSCULAR HEMOGLOBIN 33.6 uug (23.8-33.4); MEAN CORPUSCULAR VOLUME 96.5 fL (73.0-96.2); PLATELET COUNT (AUTO) 229 K/uL (152-348)
[2021-10-16 07:20] LABS: CARBON DIOXIDE 14 mmol/L (21-32); CHLORIDE 110 mmol/L (98-107); CREATININE 0.5 mg/dL (0.6-1.3); GLUCOSE 75 mg/dL (74-106); MAGNESIUM 1.6 mg/dL (1.8-2.4); PHOSPHOROUS 3.1 mg/dL (2.5-4.9); UREA NITROGEN, BLOOD 4 mg/dL (7-18)
[2021-10-16 08:24] LABS: POTASSIUM 2.7 mmol/L (3.5-5.1)
--- NOTE | 2021-10-16 08:30 | NUR ---
patient potassium level reported to mytrle freire
[2021-10-16] MEDS: AZITHROMYCIN 250 MG TABLET PO SCH (09:02)
[2021-10-16] MEDS: ASPIRIN 81 MG TAB.CHEW PO SCH (09:02)
[2021-10-16] MEDS: SULFAMETH/TRIMETH 800/160 MG TABLET PO SCH (09:03)
[2021-10-16] MEDS: THIAMINE HCL 100 MG TABLET PO SCH (09:03)
[2021-10-16] MEDS: CALCIUM CARBONATE 600 MG TABLET PO SCH ×3 (09:03→16:13)
[2021-10-16] MEDS: MAGNESIUM OXIDE 400 MG TABLET PO SCH ×2 (09:03→16:07)
[2021-10-16] MEDS: FLUDROCORTISONE ACETATE 0.1 MG TABLET PO SCH (09:03)
[2021-10-16] MEDS: ASCORBIC ACID 500 MG TABLET PO SCH (09:03)
[2021-10-16] MEDS: MULTIVITAMINS,THERAPEUTIC TABLET PO SCH (09:03)
[2021-10-16] MEDS: MEGESTROL ACETATE 400 MG/10 ML LIQUID UDC PO SCH ×2 (09:04→21:16)
[2021-10-16] MEDS: CALCITRIOL 0.25 MCG CAPSULE PO SCH (09:05)
[2021-10-16] MEDS: NYSTATIN SUSPENSION 5 ML LIQUID UDC PO SCH ×4 (09:06→21:16)
[2021-10-16] MEDS: FLUCONAZOLE 200 MG TABLET PO SCH (09:07)
[2021-10-16] MEDS: ENSURE CLEAR 240 ML LIQUID (MIX BERRY) PO SCH ×3 (09:07→16:06)
[2021-10-16] MEDS: NUTRISOURCE FIBER 4 GM PACKET PO SCH ×3 (09:08→16:07)
[2021-10-16] MEDS: FOLIC ACID 1 MG TABLET PO SCH (09:08)
[2021-10-16] MEDS: MAGNESIUM SULFATE/D5W 100 ML IV SCH ×2 (10:02→11:52)
[2021-10-16 10:58] VITALS: BP 107/22
[2021-10-16] MEDS ORDERED: POTASSIUM CHLORIDE 20 MEQ TAB.PRT.SR PO SCH (11:00)
[2021-10-16] MEDS ORDERED: POTASSIUM CHLORIDE 20 MEQ TAB.PRT.SR PO ONE (11:30)
[2021-10-16] MEDS: POTASSIUM CHLORIDE 50 ML IV SCH ×7 (13:20→23:21)
[2021-10-16 16:00] VITALS: BP 109/82
[2021-10-16 18:22] LABS: CARBON DIOXIDE 14 mmol/L (21-32); CHLORIDE 108 mmol/L (98-107); CREATININE 0.5 mg/dL (0.6-1.3); GLUCOSE 87 mg/dL (74-106); UREA NITROGEN, BLOOD 7 mg/dL (7-18)
[2021-10-16 18:33] LABS: POTASSIUM 2.6 mmol/L (3.5-5.1)
[2021-10-16] MEDS: LOPERAMIDE HCL 2 MG CAPSULE PO PRN ×2 (18:43→23:21)
--- NOTE | 2021-10-16 18:59 | NUR ---
potassium level 2.6 reported to YUKI freire
[2021-10-16] MEDS: POTASSIUM CHLORIDE 20 MEQ TAB.PRT.SR PO SCH ×3 (20:03→23:21)
[2021-10-16 20:25] VITALS: BP 105/71
--- NOTE | 2021-10-17 02:00 | NUR ---
Administered 4 bags of 10MEQ IV potassium and 3 doses of 20MEW potassium tablets this shift. Potassium rechecked and now is at 3.6, WNL.
[2021-10-17 04:52] VITALS: BP 91/59
--- NOTE | 2021-10-17 06:05 | NUR ---
Noted with 2 episodes of diarrhea this shift. Imodium provided as needed. On RA, no SOB or coughing. Still noted with low energy, is BRP. Patient would like to walk more if possible to prepare for his discharge. has a good appetite and requesting Jello this shift, tolerates well. Safety measures continued, call light within reach.
[2021-10-17] MEDS: PANTOPRAZOLE SODIUM 40 MG TABLET.DR PO SCH (06:31)
[2021-10-17] MEDS: BLOOD SUGAR DIAGNOSTIC 1 EACH STRIP VI SCH (06:31)
[2021-10-17 07:17] LABS: HEMATOCRIT 28.5 % (36.7-47.1); MEAN CORPUSCULAR HEMOGLOBIN 33.7 uug (23.8-33.4); MEAN CORPUSCULAR VOLUME 98.5 fL (73.0-96.2); PLATELET COUNT (AUTO) 264 K/uL (152-348)
[2021-10-17 07:43] LABS: CARBON DIOXIDE 14 mmol/L (21-32); CHLORIDE 112 mmol/L (98-107); CREATININE 0.6 mg/dL (0.6-1.3); GLUCOSE 89 mg/dL (74-106); POTASSIUM 4.2 mmol/L (3.5-5.1); UREA NITROGEN, BLOOD 3 mg/dL (7-18)
--- NOTE | 2021-10-17 08:00 | NUR ---
Received patient awake in bed, watching television. Patient AO x 4, gibraltarian speaking and comprehends minimal Indonesian. No shortness of breath noted at this time. Left and right upper arm midline flushing, patent, and intact. Safety precautions in place. Will continue to monitor patient.
[2021-10-17] MEDS: FLUDROCORTISONE ACETATE 0.1 MG TABLET PO SCH (08:54)
[2021-10-17] MEDS: THIAMINE HCL 100 MG TABLET PO SCH (08:54)
[2021-10-17] MEDS: MAGNESIUM OXIDE 400 MG TABLET PO SCH (08:54)
[2021-10-17] MEDS: ASPIRIN 81 MG TAB.CHEW PO SCH (08:55)
[2021-10-17] MEDS: FOLIC ACID 1 MG TABLET PO SCH (08:55)
[2021-10-17] MEDS: SULFAMETH/TRIMETH 800/160 MG TABLET PO SCH (08:55)
[2021-10-17] MEDS: ASCORBIC ACID 500 MG TABLET PO SCH (08:55)
[2021-10-17] MEDS: MULTIVITAMINS,THERAPEUTIC TABLET PO SCH (08:55)
[2021-10-17] MEDS: CALCIUM CARBONATE 600 MG TABLET PO SCH (08:55)
[2021-10-17] MEDS: NYSTATIN SUSPENSION 5 ML LIQUID UDC PO SCH (08:55)
[2021-10-17] MEDS: CALCITRIOL 0.25 MCG CAPSULE PO SCH (08:56)
[2021-10-17] MEDS: MEGESTROL ACETATE 400 MG/10 ML LIQUID UDC PO SCH (08:56)
[2021-10-17] MEDS: ENSURE CLEAR 240 ML LIQUID (MIX BERRY) PO SCH (08:56)
[2021-10-17] MEDS: NUTRISOURCE FIBER 4 GM PACKET PO SCH (08:57)
[2021-10-17] MEDS ORDERED: FLUD0.1T PO (10:17)
[2021-10-17] MEDS ORDERED: AZIT500T PO (10:17)
[2021-10-17 10:58] VITALS: BP 114/84
--- NOTE | 2021-10-17 13:00 | NUR ---
Patient discharged in stable condition per MD. No distress noted at this time. IV's removed. Received discharge packet and medication prescription. No distress noted at this time. All of belongings brought with patient. Home medications brought home with patient.
== END 2021-10-17 13:00 | disposition home or self-care (01) | DRG 890 ==
LOC: ER 15:09 → TELE3 18:24 → MEDSURG3 23:41 → TELE3 09-24 10:07 → MEDSURG3 09-27 14:30
PROVIDERS: ADMIT Nurse Practitioner Acute Care; ATTEND Nurse Practitioner Family
PROC: B547ZZA Ultrasonography of Left Subclavian Vein, Guidance (ICD-10-PCS; 2021-09-18)
PROC: 05H633Z Insertion of Infusion Device into Left Subclavian Vein, Percutaneous Approach (ICD-10-PCS; 2021-09-18)
PROC: 30233K1 Transfusion of Nonautologous Frozen Plasma into Peripheral Vein, Percutaneous Approach (ICD-10-PCS; principal; 2021-10-02)
PROC: 009U3ZX Drainage of Spinal Canal, Percutaneous Approach, Diagnostic (ICD-10-PCS; 2021-10-07)
PROC: B01BYZZ Fluoroscopy of Spinal Cord using Other Contrast (ICD-10-PCS; 2021-10-07)
PROC: 009U3ZX Drainage of Spinal Canal, Percutaneous Approach, Diagnostic (ICD-10-PCS; 2021-10-13)
PROC: B01BYZZ Fluoroscopy of Spinal Cord using Other Contrast (ICD-10-PCS; 2021-10-13)
PROC: B547ZZA Ultrasonography of Left Subclavian Vein, Guidance (ICD-10-PCS; 2021-10-14)
PROC: 30233N1 Transfusion of Nonautologous Red Blood Cells into Peripheral Vein, Percutaneous Approach (ICD-10-PCS; 2021-10-14)
PROC: 05H633Z Insertion of Infusion Device into Left Subclavian Vein, Percutaneous Approach (ICD-10-PCS; 2021-10-14)
DX: B20 Human immunodeficiency virus [HIV] disease (principal); G92.8 Other toxic encephalopathy; B25.9 Cytomegaloviral disease, unspecified; U07.1 COVID-19; E43 Unspecified severe protein-calorie malnutrition; E27.8 Other specified disorders of adrenal gland; R64 Cachexia; D68.4 Acquired coagulation factor deficiency; D70.9 Neutropenia, unspecified; E86.0 Dehydration; E87.1 Hypo-osmolality and hyponatremia; Z68.1 Body mass index [BMI] 19.9 or less, adult; D53.9 Nutritional anemia, unspecified; E16.2 Hypoglycemia, unspecified; E86.1 Hypovolemia; E83.51 Hypocalcemia; R62.7 Adult failure to thrive; Z59.00 Homelessness unspecified; I25.10 Atherosclerotic heart disease of native coronary artery without angina pectoris; E88.09 Other disorders of plasma-protein metabolism, not elsewhere classified; R74.01 Elevation of levels of liver transaminase levels; K29.70 Gastritis, unspecified, without bleeding; R19.5 Other fecal abnormalities; E83.39 Other disorders of phosphorus metabolism; E87.6 Hypokalemia; E83.42 Hypomagnesemia; E73.9 Lactose intolerance, unspecified; I25.2 Old myocardial infarction; K76.9 Liver disease, unspecified
CPT/HCPCS: 36415; 62270; 70030-TC; 70450; 71045; 71250; 76700; 82024; 82533; 82747; 82784; 83525; 83550; 83605; 83615; 83690; 83735; 83935; 84100; 84132; 84133; 84155; 84157; 84165; 84300; 84443; 84550; 84681; 85014; 85025; 85610; 85730; 86038; 86140; 86334; 86361; 86430; 86625; 86644; 86645; 86704; 86803; 86850; 86900; 86901; 86920; 87040; 87046; 87070; 87077; 87086; 87205; 87328; 87340; 87536; 87806; 89051; 93005; 97161; A4663; G0378; J0289; J0696; J1720; J1815; J2001; J3370; J3430; J3475; J3480; J3490; J7030; J7040; J7042; J7050; J7060; J8999; P9016; P9059; Q0144; U0003